=== PATIENT | female | born 1960 | race Caucasian/White ===

== ENCOUNTER 2018-11-20 22:34 | Inpatient (IN) | payer BC, SELFPAY ==
[2018-11-20 22:57] VITALS: BMI 35.9
[2018-11-20 23:09] VITALS: PULSE 84
[2018-11-20 23:22] VITALS: BP 158/87; PULSE 82; RESP 18; TEMP 36.9; O2SAT 98
[2018-11-20 23:24] VITALS: BMI 35.9
--- NOTE | 2018-11-20 23:33 | HP.PCM_ITS ---
Problem List (1) Hypercalcemia Status: Acute (2) Benign hypertension Status: Acute (3) Depression Status: Chronic (4) Fibromyalgia Status: Chronic (5) Insomnia Status: Chronic (6) Rheumatoid arthritis Status: Chronic History of Present Illness Date of Admission: 11/21/18 Chief Complaint: abnormal labs, high calcium The patient is a 58 year old patient with a history of rheumatoid arthritis who was discontinued her medications in October. 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 She was clearly not herself recently and the physician brought her in for laboratory studies. She was found to have a critically high calcium level of 13.9 and was sent to the [facility] emergency department. There she was treated with normal saline and they had plan to admit her there however there were no beds available and our facility was called to admit her. Currently she denies chest pain shortness of breath fevers or chills nausea vomiting or diarrhea. She does say her back pain has been getting much worse recently but in speaking with her it is clear that her history telling is somewhat incoherent and her speech pattern is somewhat tangential. She will be continued on observation status with IV normal saline at 200 cc/h and we will draw parathyroid hormone and repeat labs of calcium and BMP. Vital signs in the emergency room and [facility] were noted to be temperature of 36.9 ?C peripheral pulse rate of 68 bpm respiratory rate 18 breaths/min systolic blood pressure 149 diastolic blood pressure 85 SPO2 96%. Chest x-[facility] report in [facility] ED also shows perihilar interstitial opacities and central peribronchial thickening are again present similar in appearance to the prior study which may reflect chronic fibrotic changes. Superimposed atypical infectious or inflammatory process cannot be excluded no gross large lobar consolidation or effusion or pneumothorax is present. Free ionized calcium was 6.8 magnesium and phosphorus were within normal limits. Past Medical History Past Medical History (Chronic Problems): Chronic Problems Depression (Chronic) Fibromyalgia (Chronic) Insomnia (Chronic) Rheumatoid arthritis (Chronic) Allergies No Known Allergies Allergy (Verified 11/20/18 22:59) Home Medications: Ambulatory Orders Medication Instructions Recorded Bupropion HCl [Wellbutrin Sr] 200 mg PO BID 11/20/18 Cyanocobalamin (Vitamin B-12) 1,000 mcg PO DAILY 11/20/18 [Vitamin B-12] Ergocalciferol (Vitamin D2) 50,000 unit PO TH 11/20/18 [Vitamin D2] Lamotrigine [Lamictal] 100 mg PO BID 11/20/18 Levothyroxine [Synthroid] 50 mcg PO DAILY 11/20/18 Losartan/Hydrochlorothiazide 1 tab PO DAILY 11/20/18 [Losartan-Hctz 50-12.5 mg Tab] Multivitamin [Once Daily] 1 each PO DAILY 11/20/18 Prednisone 2.5 mg PO DAILY PRN PRN 11/20/18 Temazepam [Restoril] 30 mg PO QHS PRN 11/20/18 traZODone [Desyrel] 100 mg PO QHS 11/20/18 Smoking Status: Never smoker - *Family History Maternal History Items: No pertinent history Review of Systems Constitutional: Reports: Weakness. Denies: Chills, Fever, Weight Change HEENT: Denies: Head Aches, Sinus Congestion, Sinus Drainage Cardiovascular: Denies: Chest Pain, Palpitations Respiratory: Denies: Cough, Shortness of breath at rest, Sputum production Gastrointestinal: Denies: Abdominal Pain, Nausea, Vomiting Genitourinary: Denies: Dysuria Musculoskeletal: Denies: Joint Pain, Joint Tenderness Skin: Denies: Rash, Wounds Neurological: Reports: Change in Speech, Slurred speech. Denies: Focal weakness, Numbness, Tingling Psychiatric: Denies: Anxiety, Depression, Homicidal Ideations, Suicidal Ideations Hematologic/ Lymphatic: Denies: Easy Bruising, Easy Bleeding VTE Information - Inpt Only VTE Present on Admission: No VTE Mechan Device Prophylaxis: None VTE Pharm Prophylaxis ordered?: Yes Patient Problems: Active and Suspected Problems Hypercalcemia (Acute) Benign hypertension (Acute) - Physical Exam General: Alert, Oriented x3, Cooperative HEENT: Atraumatic, Normocephalic Neck: Supple Lungs: Clear to auscultation, Normal air movement Cardiovascular: Regular rate, Normal S1, Normal S2, No murmurs Abdomen: Bowel Sounds Present, Soft, Non Tender Extremities: No edema, Capillary Refill Less than 3 Seconds Skin: No rashes, No breakdown Musculoskeletal: No Tenderness to Palpation of Joints or Extremities Neurological: Cranial nerves II-XII grossly intact Psych/Mental Status: Appropriate Vital Signs Temp Pulse Resp BP Pulse Ox 98.5 F 82 18 158/87 H 98 11/20/18 23:22 11/20/18 23:22 11/20/18 23:22 11/20/18 23:22 11/20/18 23:22 Oxygen Delivery Method Room Air Weight: 222 lb 3.615 oz Body Mass Index (BMI) 35.9 Assessment/Plan All Active Problems Hypercalcemia (Acute) Benign hypertension (Acute) Chronic Problems Depression (Chronic) Fibromyalgia (Chronic) Insomnia (Chronic) Rheumatoid arthritis (Chronic) Plan 1. Hypercalcemia?start normal saline 200 cc/h repeat BMP and free ionized calcium upon arrival to our facility and also repeat BMP in a.m. Order parathyroid hormone level 2. Fibromyalgia continue current home therapy. 3. Insomnia continue current home therapy 4. Depression stable. 5. DVT prophylaxis start low molecular weight heparin Anticipate discharge home when calcium levels have normalized. If continued to be high may consider calcitonin treatment and/or bisphosphonate therapy. I would recommend that most of this could be done as an outpatient status as long as her calcium levels are lower. Code Visit OBSV E&M: 35232 Initial observation care L2
[2018-11-21] VITALS (9 sets, daily range): BP systolic 144–153; BP diastolic 74–90; PULSE 74–82; RESP 16–18; TEMP 36.7–37; O2SAT 95–100
[2018-11-21] MEDS: 0.9% Normal Saline 1,000 ML 200 ML IV ×5 (00:44→21:18)
[2018-11-21] MEDS: 0.9% NaCl Peripheral Flush Adult/Peds IV ×5 (01:04→13:00)
[2018-11-21] MEDS: traZODone 100 MG Tablet PO ×2 (01:09→21:25)
[2018-11-21] MEDS: Temazepam 15 MG Capsule 30 MG PO (01:09)
[2018-11-21 03:47] LABS: Anion Gap 8 (5-15); BUN 17 mg/dL (7-18); Calcium,Total 11.3 mg/dL (8.5-10.1); Chloride 108 mmol/L (98-107); EST Glomerular Filtration Rate 33 mL/min (>60); Est Glom Filt Rate - Afr Amer 39 mL/min (>60); Estimated Creatinine Clearance 32.94 ml/min; Glucose 88 mg/dL (74-106); Magnesium 1.7 mg/dL (1.6-2.6); Phosphorus 3.5 mg/dL (2.5-4.9); Potassium 3.2 mmol/L (3.5-5.1); Sodium Level 142 mmol/L (136-145)
[2018-11-21 04:02] LABS: PTHIN 6.8 pg/mL (18.4-80.1)
[2018-11-21] MEDS: Enoxaparin 40 MG/0.4 ML Syringe SC (05:41)
[2018-11-21] MEDS: Levothyroxine 50 MCG Tablet PO (05:41)
[2018-11-21] MEDS: Acetaminophen 325 MG Tablet 650 MG PO ×2 (05:49→16:28)
[2018-11-21] MEDS: Multivitamins,Therapeutic Tablet 1 TABLET PO (08:16)
[2018-11-21 08:17] LABS: Hematocrit 35.3 % (37-47); Hemoglobin 11.5 g/dl (12.0-15.0); Mean Corp Hgb Conc 32.6 g/gl (32-36); Mean Corpuscular Hgb 29.7 pg (27.0-32.0); Mean Corpuscular Volume 91.2 fL (81-99); Mean Platelet Vol. 7.9 fl (6.2-12.0); Platelet Count 188 K/mm3 (150-450); RBC Distribution Width CV 15.5 % (11.6-14.6); RBC Distribution Width SD 51.2 fl (35.1-43.9); Red Blood Count 3.87 M/mm3 (4.2-5.4); Scan Indicated on CBC? Y/N NO; White Blood Count 4.5 K/mm3 (4.4-11.0)
[2018-11-21 08:28] LABS: Albumin, Serum 2.9 g/dL (3.2-5.0)
[2018-11-21 08:30] LABS: ALB/GLOB Ratio 0.8 RATIO (0.9-2.4); Globulin 3.6 g/dL (2.2-4.2); Protein, Total 6.4 g/dL (6.4-8.2)
--- NOTE | 2018-11-21 09:07 | PCM.PN.HOSP ---
Patient Problems: Active and Suspected Problems Hypercalcemia (Acute) Benign hypertension (Acute) Subjective: Patient seen and examined. He was admitted to the ED on 11/21/2018 with a complaint of generalized malaise and was found to have elevated calcium of 13.9. This was at [facility] ED and she was transferred to [facility] on account of lack of beds. Patient has a history of rheumatoid arthritis and states that she recently discontinued her medications about a week ago at the instruction of her product analyst. She was not clear about why she was asked to stop taking her medications but just said her product analyst that she needed a break from her medications. She denies any history of elevated calcium and states she had her generalized pain but did not have any back pain. Back pain only started when she was admitted to the hospital where she attributed to the hospital bed. She denies any weight loss or chronic cough and has no history of smoking or history of lung cancer. Review of systems otherwise negative. Vitals/I&O's: Vital Signs Temp Pulse Resp BP Pulse Ox 98.1 F 80 18 144/88 H 95 11/21/18 08:19 11/21/18 08:20 11/21/18 08:19 11/21/18 08:19 11/21/18 08:19 Oxygen Delivery Method Room Air Weight: 222 lb 3.615 oz Body Mass Index (BMI) 35.9 Intake and Output for Last 24 Hours 11/19/18 11/20/18 11/21/18 23:59 23:59 23:59 Intake Total 1159 / 1159 Output Total 600 / 600 Balance 559 / 559 General: Alert, Oriented x3, Cooperative, No apparent distress HEENT: Atraumatic, PERRLA, EOMI, Normocephalic Oral: Moist Mucosa Neck: Supple, No JVD, Negative Carotid Bruits Lungs: Clear to auscultation, Normal air movement, No rhonchi, No wheeze, No rales Cardiovascular: Regular rate, Regular Rhythm, Normal S1, Normal S2, No murmurs Abdomen: Bowel Sounds Present, Soft, Non Tender, Non-Distended, No Hepato-splenomegaly Extremities: No clubbing, No cyanosis, No edema, Capillary Refill Less than 3 Seconds Skin: - - Scattered ecchymotic patches over her upper extremities. Musculoskeletal: No Tenderness to Palpation of Joints or Extremities Lymphatic: No Cervical, Supraclavicular, or Inguinal Adenopathy Neurological: Cranial nerves II-XII grossly intact, Neuro grossly intact, Motor Exam 5/5 strength throughout Psych/Mental Status: Normal Affect, Appropriate, Alert and oriented to time, place, person, mood and affect Laboratory Results 11/21/18 03:10: Sodium 142, Potassium 3.2 L, Chloride 108 H, Carbon Dioxide 26.0, Anion Gap 8, BUN 17, Creatinine 1.70 H, Estim Creat Clear Calc 32.94, Est GFR (MDRD) Af Amer 39 L, Est GFR (MDRD) Non-Af 33 L, BUN/Creatinine Ratio 10.0, Glucose 88, Calcium 11.3 H, Phosphorus 3.5, Magnesium 1.7 11/21/18 03:10: Ionized Calcium Pending 11/21/18 03:10: PTH Intact 6.8 L 11/21/18 08:10: Total Protein 6.4, Globulin 3.6, Albumin/Globulin Ratio 0.8 L 11/21/18 08:10: WBC 4.5, RBC 3.87 L, Hgb 11.5 L, Hct 35.3 L, MCV 91.2, MCH 29.7, MCHC 32.6, RDW 15.5 H, RDW Differential 51.2 H, Plt Count 188, MPV 7.9 11/21/18 08:10: Albumin 2.9 L Current Medications Acetaminophen (Tylenol) 650 mg PO Q6H PRN PRN PRN Reason: Mild Pain (1-3)/Temp > 100.7 F Last Admin: 11/21/18 05:49 Dose: 650 mg Bupropion HCl (Wellbutrin Sr (100mg Tablets)) 200 mg PO BID [facility] Cyanocobalamin (Vitamin B12) 1,000 mcg PO DAILY [facility] Enoxaparin Sodium (Lovenox) 40 mg SC DAILY@0600 [facility] Last Admin: 11/21/18 05:41 Dose: 40 mg Ergocalciferol (Vitamin D) 50,000 unit PO TH [facility] Sodium Chloride () 1,000 mls @ 200 mls/hr IV .Q5H [facility] Last Admin: 11/21/18 05:50 Dose: 200 mls/hr Lamotrigine (Lamictal) 100 mg PO BID [facility] Levothyroxine Sodium (Synthroid) 50 mcg PO DAILY@0600 [facility] Last Admin: 11/21/18 05:41 Dose: 50 mcg Multivitamins (Multivitamin) 1 tablet PO DAILYCM [facility] Last Admin: 11/21/18 08:16 Dose: 1 tablet Nystatin (Mycostatin Powder) 1 applic TOPICAL BID [facility]; Protocol Prednisone () 2.5 mg PO DAILY PRN PRN PRN Reason: arthritis Sodium Chloride () 5 - 15 ml IV UD PRN PRN Reason: SALINE FLUSH Last Admin: 11/21/18 01:09 Dose: 10 ml Temazepam (Restoril) 30 mg PO QHS PRN [facility] Last Admin: 11/21/18 01:09 Dose: 30 mg Trazodone HCl (Desyrel) 100 mg PO QHS [facility] Last Admin: 11/21/18 01:09 Dose: 100 mg Medical Necessity - Tobacco Use Smoking Status: Never smoker Assessment/Plan All Active Problems Hypercalcemia (Acute) Benign hypertension (Acute) 1. Hypercalcemia, possibly medication induced admitted with calcium of 13.8, as well as free ionized calcium of 6.8 from [place] being hydrated with IVF calcium today is 11.3, corrected for albumin of 2.9, calcium is 12.2 ionised calcium pending; PTH is suppressed at 6.8,. making hyperparathyroidism unlikely cause of hypercalcemia may be hypervitaminosis D, as patient is on ergocalciferol [id number] weekly. Per her ambulatory med list, she was also on HCTZ/lisinopril. HCTZ likely contributed to hypercalcemia hold ergocalciferol now; check TSH and 25-OH vit D and 1.25- OH vit D levels l if these are WNL, will get a CT chest to check for any occult malignancy continue hydrating with IVF NS and monitor calcium total protein not elevated. will check lipid profile 2. Hypokalemia: K is 3.2; will replace and monitor 3. KODI: Cr is 1.7, baseline Cr from October 2018 is ~ 0.9. continue hydrating. 4. Fibromyalgia: on prednisone and wellbutrin 5. Chronic insomnia: on trazodone 6. Depression: on trazodone and wellbutrin DVT prophylaxis: lovenox Code Visit OBSV E&M: 32633 Subsequent observation care L3
--- NOTE | 2018-11-21 09:12 | PN_ITS ---
Patient Problems: Active and Suspected Problems Hypercalcemia (Acute) Benign hypertension (Acute) Subjective: Patient seen and examined. He was admitted to the ED on 11/21/2018 with a complaint of generalized malaise and was found to have elevated calcium of 13.9. This was at [facility] ED and she was transferred to [facility] on account of lack of beds. Patient has a history of rheumatoid arthritis and states that she recently discontinued her medications about a week ago at the instruction of her licensing worker. She was not clear about why she was asked to stop taking her medications but just said her licensing worker that she needed a break from her medications. She denies any history of elevated calcium and states she had her generalized pain but did not have any back pain. Back pain only started when she was admitted to the hospital where she attributed to the hospital bed. She denies any weight loss or chronic cough and has no history of smoking or history of lung cancer. Review of systems otherwise negative. Vitals/I&O's: Vital Signs Temp Pulse Resp BP Pulse Ox 98.1 F 80 18 144/88 H 95 11/21/18 08:19 11/21/18 08:20 11/21/18 08:19 11/21/18 08:19 11/21/18 08:19 Oxygen Delivery Method Room Air Weight: 222 lb 3.615 oz Body Mass Index (BMI) 35.9 Intake and Output for Last 24 Hours 11/19/18 11/20/18 11/21/18 23:59 23:59 23:59 Intake Total 1159 / 1159 Output Total 600 / 600 Balance 559 / 559 General: Alert, Oriented x3, Cooperative, No apparent distress HEENT: Atraumatic, PERRLA, EOMI, Normocephalic Oral: Moist Mucosa Neck: Supple, No JVD, Negative Carotid Bruits Lungs: Clear to auscultation, Normal air movement, No rhonchi, No wheeze, No rales Cardiovascular: Regular rate, Regular Rhythm, Normal S1, Normal S2, No murmurs Abdomen: Bowel Sounds Present, Soft, Non Tender, Non-Distended, No Hepato- splenomegaly Extremities: No clubbing, No cyanosis, No edema, Capillary Refill Less than 3 Seconds Skin: - - Scattered ecchymotic patches over her upper extremities. Musculoskeletal: No Tenderness to Palpation of Joints or Extremities Lymphatic: No Cervical, Supraclavicular, or Inguinal Adenopathy Neurological: Cranial nerves II-XII grossly intact, Neuro grossly intact, Motor Exam 5/5 strength throughout Psych/Mental Status: Normal Affect, Appropriate, Alert and oriented to time, place, person, mood and affect Laboratory Results 11/21/18 03:10: Sodium 142, Potassium 3.2 L, Chloride 108 H, Carbon Dioxide 26.0, Anion Gap 8, BUN 17, Creatinine 1.70 H, Estim Creat Clear Calc 32.94, Est GFR (MDRD) Af Amer 39 L, Est GFR (MDRD) Non-Af 33 L, BUN/Creatinine Ratio 10.0, Glucose 88, Calcium 11.3 H, Phosphorus 3.5, Magnesium 1.7 11/21/18 03:10: Ionized Calcium Pending 11/21/18 03:10: PTH Intact 6.8 L 11/21/18 08:10: Total Protein 6.4, Globulin 3.6, Albumin/Globulin Ratio 0.8 L 11/21/18 08:10: WBC 4.5, RBC 3.87 L, Hgb 11.5 L, Hct 35.3 L, MCV 91.2, MCH 29.7, MCHC 32.6, RDW 15.5 H, RDW Differential 51.2 H, Plt Count 188, MPV 7.9 11/21/18 08:10: Albumin 2.9 L Current Medications Acetaminophen (Tylenol) 650 mg PO Q6H PRN PRN PRN Reason: Mild Pain (1-3)/Temp > 100.7 F Last Admin: 11/21/18 05:49 Dose: 650 mg Bupropion HCl (Wellbutrin Sr (100mg Tablets)) 200 mg PO BID [facility] Cyanocobalamin (Vitamin B12) 1,000 mcg PO DAILY [facility] Enoxaparin Sodium (Lovenox) 40 mg SC DAILY@0600 [facility] Last Admin: 11/21/18 05:41 Dose: 40 mg Ergocalciferol (Vitamin D) 50,000 unit PO TH [facility] Sodium Chloride () 1,000 mls @ 200 mls/hr IV .Q5H [facility] Last Admin: 11/21/18 05:50 Dose: 200 mls/hr Lamotrigine (Lamictal) 100 mg PO BID [facility] Levothyroxine Sodium (Synthroid) 50 mcg PO DAILY@0600 [facility] Last Admin: 11/21/18 05:41 Dose: 50 mcg Multivitamins (Multivitamin) 1 tablet PO DAILYCM [facility] Last Admin: 11/21/18 08:16 Dose: 1 tablet Nystatin (Mycostatin Powder) 1 applic TOPICAL BID [facility]; Protocol Prednisone () 2.5 mg PO DAILY PRN PRN PRN Reason: arthritis Sodium Chloride () 5 - 15 ml IV UD PRN PRN Reason: SALINE FLUSH Last Admin: 11/21/18 01:09 Dose: 10 ml Temazepam (Restoril) 30 mg PO QHS PRN [facility] Last Admin: 11/21/18 01:09 Dose: 30 mg Trazodone HCl (Desyrel) 100 mg PO QHS [facility] Last Admin: 11/21/18 01:09 Dose: 100 mg Medical Necessity - Tobacco Use Smoking Status: Never smoker Assessment/Plan All Active Problems Hypercalcemia (Acute) Benign hypertension (Acute) 1. Hypercalcemia, possibly medication induced * admitted with calcium of 13.8, as well as free ionized calcium of 6.8 from [place] * being hydrated with IVF * calcium today is 11.3, corrected for albumin of 2.9, calcium is 12.2 * ionised calcium pending; PTH is suppressed at 6.8,. making hyperparathyroidism unlikely * cause of hypercalcemia may be hypervitaminosis D, as patient is on ergocalciferol [id number] weekly. Per her ambulatory med list, she was also on HCTZ/lisinopril. HCTZ likely contributed to hypercalcemia * hold ergocalciferol now; check TSH and 25-OH vit D and 1.25- OH vit D levels l if these are WNL, will get a CT chest to check for any occult malignancy * continue hydrating with IVF NS and monitor calcium * total protein not elevated. * will check lipid profile 2. Hypokalemia: K is 3.2; will replace and monitor 3. KODI: Cr is 1.7, baseline Cr from October 2018 is ~ 0.9. continue hydrating. 4. Fibromyalgia: on prednisone and wellbutrin 5. Chronic insomnia: on trazodone 6. Depression: on trazodone and wellbutrin DVT prophylaxis: lovenox Code Visit OBSV E&M: 33260 Subsequent observation care L3
[2018-11-21] MEDS: Cyanocobalamin 500 MCG Tablet 1000 MCG PO (09:46)
[2018-11-21] MEDS: Nystatin Powder 15gm Bottle 1 APPLIC TOPICAL ×2 (09:46→21:14)
[2018-11-21] MEDS: lamoTRIgine 100 MG Tablet PO ×2 (09:46→21:15)
[2018-11-21] MEDS: buPROPion (SR) 100 MG TABLET.SA 200 MG PO ×2 (09:46→21:15)
[2018-11-21 09:48] LABS: Thyroid Stim Hormone (TSH) 1.99 uIU/mL (0.358-3.74)
[2018-11-21 10:51] LABS: Vitamin D,25 Hydroxy 71.2 ng/mL (29.95-100.01)
--- NOTE | 2018-11-21 12:21 | CT_ITS ---
STUDY: CT CHEST WITHOUT CONTRAST REASON FOR EXAM: Female, 58 years old. Hypercalcemia. Fibromyalgia. History of rheumatoid arthritis. RADIATION DOSAGE (If Supplied By Facility): CTDIvol = ( 19.15 ) mGy, DLP = ( 612.45 ) mGycm TECHNIQUE: Transaxial imaging was performed without the administration of intravenous contrast material. Multiplanar coronal and sagittal images were reformatted. Individualized dose optimization techniques were used for this CT. COMPARISON: None. FINDINGS: Diffuse increased interstitial markings in both lungs with a fibronodular pattern. There is also evidence of a focal areas of confluence in the anterior aspect of the right middle lobe as well as in both lower lobes. There is also evidence of honeycombing at the lung bases. Findings are suggestive for chronic interstitial fibrosis. There is no demonstrated pleural abnormality. There are calcifications of the coronary arteries. Normal mediastinum. Normal hilar regions. Normal unenhanced pulmonary arteries. Normal aorta arch and descending thoracic aorta. There are multi-level degenerative changes of the thoracic spine. Calcified splenic granulomas. CT/Chest without Contrast IMPRESSION: Findings suggestive of chronic interstitial fibrosis involving both lungs worse in the lower lobes. Electronically Signed: Filiberto Cook, at 13:43 EDT , Service support ,
--- NOTE | 2018-11-21 12:26 | CASEMGMT ---
RN CM Assessment Presentation: Hypercalcemia, Calcium 13.9 @ [facility] ER. Speech changes. Intro role of CM and purpose of RN CM assessment to patient in room. She is awake, alert and able to participate in assessment. Demographics, PCP and Pharmacy verified. Pt states until recently she has been very independent, no difficulties. -CT planned for today. PCP: Dr. Jany Morales Specialists: Rheumatology Preferred [facility]acy: [facility] Insurance: [employer] Prescription Benefit: yes LNOK: not listed, pt has friend Gera Anne as person to notify. Living Arrangements: lives independently in one story home. Has laundry in basement. Pt states she generally is independent, does own care and home care. Pt states her anglican family is able to assist with bringing food, home care and laundry on dc if needed. Transportation: pt drives, but if unable, has friends who can drive her. DME: cane, does not use. HHC: none Patient DC goals: Home DC PLAN: Home. Ke HASKINS RN ACM
--- NOTE | 2018-11-21 12:43 | CHAPLAIN ---
Type of Pastoral Visit _x__ Initial Visit ___ Follow-up Visit ___ On-call Visit ___ General Patient Visit ___ Spiritual Assessment ___ Family Conference ___ Bereavement ___ Rapid Response ___ Code Blue ___ Other (describe below) Pastoral Care Referral From _x__ Patient ___ Family ___ Nurse ___ Physician ___ Linux Security Administrator ___ Campus Wellness Coordinator ___ Other (describe below) Sacrament/Intervention _x__ Active listening ___ Anointing ___ Voodoo ___ Bereavement ___ Communion _x__ Allison exploration ___ _x__ Life review _x__ Prayer ___ Reconciliation ___ Sacrament of Sick _x__ Supportive presence ___ Wedding ___ Other (describe below) Pastoral Comments patient seeks out spiritual support and care; pt is facing decisions about her future
[2018-11-21 12:49] LABS: Mucous, Urine 0 SEEN /hpf (<or=2+)
[2018-11-21 12:56] LABS: Color, Urine Yellow (Yellow); Glucose, Dipstick Normal (Normal); Ketone-Dipstick Negative (Negative); Leukocyte Esterase-Dipstick 25 /ul (Negative); Nitrite-Dipstick Negative (Negative); Occult Blood-Urine 250 /ul (Negative); Protein-Dipstick Negative (Negative); Specific Gravity, Urine 1.015 (1.002-1.030); Urine Bilirubin Dipstick Negative (Negative); Urine Clarity Sl. Cloudy (Clear); Urine Urobilinogen Normal (Normal); Urine pH 6.5 (5.0 - 8.0)
[2018-11-21 13:03] LABS: Red Blood Cells-Urine 5-10 SEEN /hpf (0-5); Squamous Epithelial Cells - UA 0-5 SEEN /hpf (5-10); White Blood Cells 0-5 SEEN /hpf (0-5)
[2018-11-21 13:04] LABS: Bacteria RARE /hpf (None Seen)
[2018-11-21 13:06] LABS: AST(SGOT) 31 U/L (15-37); Alanine Aminotransfer ALT/SGPT 26 U/L (13-56); Albumin, Serum 2.9 g/dL (3.2-5.0); Alkaline Phosphatase 65 U/L (45-117); Bilirubin, Direct 0.13 mg/dL (0.00-0.30); Globulin 3.7 g/dL (2.2-4.2); Protein, Total 6.6 g/dL (6.4-8.2)
[2018-11-22 01:57] VITALS: BP 165/90; PULSE 80; RESP 18; TEMP 36.5; O2SAT 98
[2018-11-22] MEDS: 0.9% Normal Saline 1,000 ML 200 ML IV ×2 (02:06→07:35)
[2018-11-22] MEDS: Enoxaparin 30 MG/0.3 ML Syringe SC (05:15)
[2018-11-22] MEDS: Levothyroxine 50 MCG Tablet PO (05:15)
[2018-11-22 07:05] LABS: Absolute Lymphocyte Count 0.74 X10^3/ul (0.83-4.51); Absolute Neutrophil Count 3.4 X10^3/uL (2.0-7.7); Basophil# 0.04 X10^3/uL; Basophil% 0.8 % (0-1); Eosinophil# 0.07 X10^3/uL; Eosinophils% 1.4 % (0-5); Hematocrit 34.8 % (37-47); Hemoglobin 11.2 g/dl (12.0-15.0); Lymphocyte # 0.74 X10^3/ul (4.0); Mean Corp Hgb Conc 32.2 g/gl (32-36); Mean Corpuscular Hgb 29.6 pg (27.0-32.0); Mean Corpuscular Volume 92.1 fL (81-99); Mean Platelet Vol. 8.5 fl (6.2-12.0); Monocyte% 14.2 % (0-10); Neutrophil # 3.36 X10^3/uL (2.7-7.7); Neutrophil % 68.4 % (47-70); Platelet Count 214 K/mm3 (150-450); RBC Distribution Width CV 15.4 % (11.6-14.6); RBC Distribution Width SD 49.6 fl (35.1-43.9); Red Blood Count 3.78 M/mm3 (4.2-5.4); White Blood Count 4.9 K/mm3 (4.4-11.0)
[2018-11-22 07:07] LABS: POSITIVE COUNT NO; POSITIVE DIFFERENTIAL NO; POSITIVE MORPHOLOGY NO
[2018-11-22 07:30] LABS: ALB/GLOB Ratio 0.7 RATIO (0.9-2.4); AST(SGOT) 30 U/L (15-37); Alanine Aminotransfer ALT/SGPT 28 U/L (13-56); Albumin, Serum 2.7 g/dL (3.2-5.0); Alkaline Phosphatase 66 U/L (45-117); Anion Gap 7 (5-15); BUN 13 mg/dL (7-18); BUN/Creat Ratio 9.1 RATIO (10-20); Calcium,Total 10.7 mg/dL (8.5-10.1); Chloride 112 mmol/L (98-107); Creatinine, Serum 1.43 mg/dL (0.55-1.02); EST Glomerular Filtration Rate 40 mL/min (>60); Est Glom Filt Rate - Afr Amer 48 mL/min (>60); Estimated Creatinine Clearance 39.16 ml/min; Globulin 3.8 g/dL (2.2-4.2); Glucose 83 mg/dL (74-106); Potassium 3.7 mmol/L (3.5-5.1); Protein, Total 6.5 g/dL (6.4-8.2); Sodium Level 143 mmol/L (136-145)
[2018-11-22 10:02] VITALS: BP 145/81; PULSE 77; RESP 18; TEMP 36.7; O2SAT 99
[2018-11-22] MEDS: lamoTRIgine 100 MG Tablet PO ×2 (10:08→22:21)
[2018-11-22] MEDS: Cyanocobalamin 500 MCG Tablet 1000 MCG PO (10:08)
[2018-11-22] MEDS: buPROPion (SR) 100 MG TABLET.SA 200 MG PO ×2 (10:08→22:22)
[2018-11-22] MEDS: Nystatin Powder 15gm Bottle 1 APPLIC TOPICAL ×2 (10:09→22:21)
[2018-11-22 10:21] VITALS: BP 156/90; BP 157/88; BP 158/91; PULSE 81; PULSE 83
--- NOTE | 2018-11-22 11:19 | PCM.PN.HOSP ---
Patient Problems: Active and Suspected Problems Hypercalcemia (Acute) Benign hypertension (Acute) Subjective: Patient seen and examined. She is much more alert today and has no complaints. Review of systems otherwise negative. Labs and vitals reviewed. Vitals/I&O's: Vital Signs Temp Pulse Resp BP Pulse Ox 98.0 F 81 18 158/91 H 99 11/22/18 10:02 11/22/18 10:21 11/22/18 10:02 11/22/18 10:21 11/22/18 10:02 Oxygen Delivery Method Room Air Weight: 222 lb 3.615 oz Body Mass Index (BMI) 35.9 Orthostatic Vital Signs Start: 11/22/18 10:21 Freq: q24h Status: Active Protocol: Activity Type Activity Date Activity User E-Sign Co-Sign Detail Recorded Client Recorded Date Recorded By Document 11/22/18 10:21 ANNAMARIE [id number] 11/22/18 10:24 ANNAMARIE 11/22/18 10:21 Orthostatic Vitals Standing -Blood Pressure (90/60-120/80 mm Hg) 157/88 H -Extremity Use Left Arm -Pulse Rate (60-100 beats/min) 83 Sitting -Blood Pressure (90/60-120/80 mm Hg) 156/90 H -Extremity Use Left Arm -Pulse Rate (60-100 beats/min) 81 Lying -Blood Pressure (90/60-120/80 mm Hg) 158/91 H -Extremity Use Left Arm -Pulse Rate (60-100 beats/min) 81 Intake and Output for Last 24 Hours 11/20/18 11/21/18 11/22/18 23:59 23:59 23:59 Intake Total 4353 / 4353 2840 / 2840 Output Total 2300 / 2300 2049 / 2049 Balance 2052 790 / 790 General: Alert, Oriented x3, Cooperative, No apparent distress HEENT: Atraumatic, PERRLA, EOMI, Normocephalic Oral: Moist Mucosa Neck: Supple, No JVD, Negative Carotid Bruits Lungs: Clear to auscultation, Normal air movement, No rhonchi, No wheeze, No rales Cardiovascular: Regular rate, Regular Rhythm, Normal S1, Normal S2, No murmurs Abdomen: Bowel Sounds Present, Soft, Non Tender, Non-Distended, No Hepato-splenomegaly Extremities: No clubbing, No cyanosis, No edema, Capillary Refill Less than 3 Seconds Skin: - - Scattered ecchymotic patches over her upper extremities-resolving Musculoskeletal: No Tenderness to Palpation of Joints or Extremities Lymphatic: No Cervical, Supraclavicular, or Inguinal Adenopathy Neurological: Cranial nerves II-XII grossly intact, Neuro grossly intact, Motor Exam 5/5 strength throughout Psych/Mental Status: Normal Affect, Appropriate, Alert and oriented to time, place, person, mood and affect Laboratory Results 11/21/18 08:10: Total Bilirubin 0.50, Direct Bilirubin 0.13, AST 31, ALT 26, Alkaline Phosphatase 65, Total Protein 6.6, Albumin 2.9 L, Globulin 3.7 11/21/18 12:40: Urine Color Yellow, Urine Clarity Sl. Cloudy, Urine pH 6.5, Ur Specific [place] 1.015, Urine Protein Negative, Urine Glucose (UA) Normal, Urine Ketones Negative, Urine Occult Blood 250 H, Urine Nitrite Negative, Urine Bilirubin Negative, Urine Urobilinogen Normal, Ur Leukocyte Esterase 25 H, Urine RBC 5-10 SEEN, Urine WBC 0-5 SEEN, Ur Squamous Epith Cells 0-5 SEEN, Urine Bacteria RARE, Urine Mucus 0 SEEN 11/22/18 06:34: WBC 4.9, RBC 3.78 L, Hgb 11.2 L, Hct 34.8 L, MCV 92.1, MCH 29.6, MCHC 32.2, RDW 15.4 H, RDW Differential 49.6 H, Plt Count 214, MPV 8.5, Immature Gran % (Auto) 0.200, Neut % (Auto) 68.4, Lymph % (Auto) 15.0 L, [place] % (Auto) 14.2 H, Eos % (Auto) 1.4, Baso % (Auto) 0.8, Absolute Neuts (auto) 3.4, Absolute Lymphs (auto) 0.74 L, Total Counted Not Reportable 11/22/18 06:34: Sodium 143, Potassium 3.7, Chloride 112 H, Carbon Dioxide 24.0, Anion Gap 7, BUN 13, Creatinine 1.43 H, Estim Creat Clear Calc 39.16, Est GFR (MDRD) Af Amer 48 L, Est GFR (MDRD) Non-Af 40 L, BUN/Creatinine Ratio 9.1 L, Glucose 83, Calcium 10.7 H, Total Bilirubin 0.40, AST 30, ALT 28, Alkaline Phosphatase 66, Total Protein 6.5, Albumin 2.7 L, Globulin 3.8, Albumin/Globulin Ratio 0.7 L Diagnostic Data Chest CT 11/21/18 12:21 IMPRESSION: Findings suggestive of chronic interstitial fibrosis involving both lungs worse in the lower lobes. Electronically Signed: Filiberto Cook, at 13:43 EDT , Service support , Current Medications Acetaminophen (Tylenol) 650 mg PO Q6H PRN PRN PRN Reason: Mild Pain (1-3)/Temp > 100.7 F Last Admin: 11/21/18 16:28 Dose: 650 mg Bupropion HCl (Wellbutrin Sr (100mg Tablets)) 200 mg PO BID [facility] Last Admin: 11/22/18 10:08 Dose: 200 mg Cyanocobalamin (Vitamin B12) 1,000 mcg PO DAILY [facility] Last Admin: 11/22/18 10:08 Dose: 1,000 mcg Enoxaparin Sodium (Lovenox) 30 mg SC DAILY@0600 [facility] Last Admin: 11/22/18 05:15 Dose: 30 mg Ergocalciferol (Vitamin D) 50,000 unit PO TH [facility] Lamotrigine (Lamictal) 100 mg PO BID [facility] Last Admin: 11/22/18 10:08 Dose: 100 mg Levothyroxine Sodium (Synthroid) 50 mcg PO DAILY@0600 [facility] Last Admin: 11/22/18 05:15 Dose: 50 mcg Nystatin (Mycostatin Powder) 1 applic TOPICAL BID [facility]; Protocol Last Admin: 11/22/18 10:09 Dose: 1 applicatio Prednisone () 2.5 mg PO DAILY PRN PRN PRN Reason: arthritis Sodium Chloride () 5 - 15 ml IV UD PRN PRN Reason: SALINE FLUSH Last Admin: 11/21/18 13:00 Dose: 10 ml Temazepam (Restoril) 30 mg PO QHS PRN [facility] Last Admin: 11/21/18 01:09 Dose: 30 mg Trazodone HCl (Desyrel) 100 mg PO QHS [facility] Last Admin: 11/21/18 21:25 Dose: 100 mg Medical Necessity - Tobacco Use Smoking Status: Never smoker Assessment/Plan All Active Problems Hypercalcemia (Acute) Benign hypertension (Acute) 1. Hypercalcemia, probably medication induced admitted with calcium of 13.8, as well as free ionized calcium of 6.8 from [place] being hydrated with IVF calcium is down to 10.7 today; corrected for albumin, is 11.7 ionised calcium still pending CT chest yesterday showed chronic bilateral interstitial fibrosis, worse in the lower lobes HCTZ and oral vitamin D on hold; I strongly suspect these caused hypecalcemia 1,25 [place] vitamin D elvel pending continue hydration with IVF will give one dose of IV lasix 40mg once to help with calcium renal excretion 2. Hypokalemia: resolved. K today is 3.7. 3. KODI: Cr is down to 1.43 from 1.7. continue hydrating with IVF. 4. Fibromyalgia: on prednisone and wellbutrin 5. Chronic insomnia: on trazodone 6. Depression: on trazodone and wellbutrin DVT prophylaxis: lovenox Code Visit Inpatient E&M: 70812 Subs Hosp L3
--- NOTE | 2018-11-22 11:26 | PN_ITS ---
Patient Problems: Active and Suspected Problems Hypercalcemia (Acute) Benign hypertension (Acute) Subjective: Patient seen and examined. She is much more alert today and has no complaints. Review of systems otherwise negative. Labs and vitals reviewed. Vitals/I&O's: Vital Signs Temp Pulse Resp BP Pulse Ox 98.0 F 81 18 158/91 H 99 11/22/18 10:02 11/22/18 10:21 11/22/18 10:02 11/22/18 10:21 11/22/18 10:02 Oxygen Delivery Method Room Air Weight: 222 lb 3.615 oz Body Mass Index (BMI) 35.9 Orthostatic Vital Signs Start: 11/22/18 10:21 Freq: q24h Status: Active Protocol: Activity Type Activity Date Activity User E-Sign Co-Sign Detail Recorded Client Recorded Date Recorded By Document 11/22/18 10:21 ANNAMARIE [id number] 11/22/18 10:24 ANNAMARIE 11/22/18 10:21 Orthostatic Vitals Standing -Blood Pressure (90/60-120/80 mm Hg) 157/88 H -Extremity Use Left Arm -Pulse Rate (60-100 beats/min) 83 Sitting -Blood Pressure (90/60-120/80 mm Hg) 156/90 H -Extremity Use Left Arm -Pulse Rate (60-100 beats/min) 81 Lying -Blood Pressure (90/60-120/80 mm Hg) 158/91 H -Extremity Use Left Arm -Pulse Rate (60-100 beats/min) 81 Intake and Output for Last 24 Hours 11/20/18 11/21/18 11/22/18 23:59 23:59 23:59 Intake Total 4353 / 4353 2840 / 2840 Output Total 2300 / 2300 2049 / 2049 Balance 2052 790 / 790 General: Alert, Oriented x3, Cooperative, No apparent distress HEENT: Atraumatic, PERRLA, EOMI, Normocephalic Oral: Moist Mucosa Neck: Supple, No JVD, Negative Carotid Bruits Lungs: Clear to auscultation, Normal air movement, No rhonchi, No wheeze, No rales Cardiovascular: Regular rate, Regular Rhythm, Normal S1, Normal S2, No murmurs Abdomen: Bowel Sounds Present, Soft, Non Tender, Non-Distended, No Hepato- splenomegaly Extremities: No clubbing, No cyanosis, No edema, Capillary Refill Less than 3 Seconds Skin: - - Scattered ecchymotic patches over her upper extremities-resolving Musculoskeletal: No Tenderness to Palpation of Joints or Extremities Lymphatic: No Cervical, Supraclavicular, or Inguinal Adenopathy Neurological: Cranial nerves II-XII grossly intact, Neuro grossly intact, Motor Exam 5/5 strength throughout Psych/Mental Status: Normal Affect, Appropriate, Alert and oriented to time, place, person, mood and affect Laboratory Results 11/21/18 08:10: Total Bilirubin 0.50, Direct Bilirubin 0.13, AST 31, ALT 26, Alkaline Phosphatase 65, Total Protein 6.6, Albumin 2.9 L, Globulin 3.7 11/21/18 12:40: Urine Color Yellow, Urine Clarity Sl. Cloudy, Urine pH 6.5, Ur Specific [place] 1.015, Urine Protein Negative, Urine Glucose (UA) Normal, Urine Ketones Negative, Urine Occult Blood 250 H, Urine Nitrite Negative, Urine Bilirubin Negative, Urine Urobilinogen Normal, Ur Leukocyte Esterase 25 H, Urine RBC 5-10 SEEN, Urine WBC 0-5 SEEN, Ur Squamous Epith Cells 0-5 SEEN, Urine Ba cteria RARE, Urine Mucus 0 SEEN 11/22/18 06:34: WBC 4.9, RBC 3.78 L, Hgb 11.2 L, Hct 34.8 L, MCV 92.1, MCH 29.6, MCHC 32.2, RDW 15.4 H, RDW Differential 49.6 H, Plt Count 214, MPV 8.5, Immature Gran % (Auto) 0.200, Neut % (Auto) 68.4, Lymph % (Auto) 15.0 L, [place] % (Auto) 14.2 H, Eos % (Auto) 1.4, Baso % (Auto) 0.8, Absolute Neuts (auto) 3.4, Absolute Lymphs (auto) 0.74 L, Total Counted Not Reportable 11/22/18 06:34: Sodium 143, Potassium 3.7, Chloride 112 H, Carbon Dioxide 24.0, Anion Gap 7, BUN 13, Creatinine 1.43 H, Estim Creat Clear Calc 39.16, Est GFR (MDRD) Af Amer 48 L, Est GFR (MDRD) Non-Af 40 L, BUN/Creatinine Ratio 9.1 L, Glucose 83, Calcium 10.7 H, Total Bilirubin 0.40, AST 30, ALT 28, Alkaline Phosphatase 66, Total Protein 6.5, Albumin 2.7 L, Globulin 3.8, Albumin/Globulin Ratio 0.7 L Diagnostic Data Chest CT 11/21/18 12:21 IMPRESSION: Findings suggestive of chronic interstitial fibrosis involving both lungs worse in the lower lobes. Electronically Signed: Filiberto Cook, at 13:43 EDT , Service support , Current Medications Acetaminophen (Tylenol) 650 mg PO Q6H PRN PRN PRN Reason: Mild Pain (1-3)/Temp > 100.7 F Last Admin: 11/21/18 16:28 Dose: 650 mg Bupropion HCl (Wellbutrin Sr (100mg Tablets)) 200 mg PO BID [facility] Last Admin: 11/22/18 10:08 Dose: 200 mg Cyanocobalamin (Vitamin B12) 1,000 mcg PO DAILY [facility] Last Admin: 11/22/18 10:08 Dose: 1,000 mcg Enoxaparin Sodium (Lovenox) 30 mg SC DAILY@0600 [facility] Last Admin: 11/22/18 05:15 Dose: 30 mg Ergocalciferol (Vitamin D) 50,000 unit PO TH [facility] Lamotrigine (Lamictal) 100 mg PO BID [facility] Last Admin: 11/22/18 10:08 Dose: 100 mg Levothyroxine Sodium (Synthroid) 50 mcg PO DAILY@0600 [facility] Last Admin: 11/22/18 05:15 Dose: 50 mcg Nystatin (Mycostatin Powder) 1 applic TOPICAL BID [facility]; Protocol Last Admin: 11/22/18 10:09 Dose: 1 applicatio Prednisone () 2.5 mg PO DAILY PRN PRN PRN Reason: arthritis Sodium Chloride () 5 - 15 ml IV UD PRN PRN Reason: SALINE FLUSH Last Admin: 11/21/18 13:00 Dose: 10 ml Temazepam (Restoril) 30 mg PO QHS PRN [facility] Last Admin: 11/21/18 01:09 Dose: 30 mg Trazodone HCl (Desyrel) 100 mg PO QHS [facility] Last Admin: 11/21/18 21:25 Dose: 100 mg Medical Necessity - Tobacco Use Smoking Status: Never smoker Assessment/Plan All Active Problems Hypercalcemia (Acute) Benign hypertension (Acute) 1. Hypercalcemia, probably medication induced * admitted with calcium of 13.8, as well as free ionized calcium of 6.8 from [place] * being hydrated with IVF * calcium is down to 10.7 today; corrected for albumin, is 11.7 * ionised calcium still pending * CT chest yesterday showed chronic bilateral interstitial fibrosis, worse in the lower lobes * HCTZ and oral vitamin D on hold; I strongly suspect these caused hypecalcemia * 1,25 [place] vitamin D elvel pending * continue hydration with IVF * will give one dose of IV lasix 40mg once to help with calcium renal excretion * 2. Hypokalemia: resolved. K today is 3.7. 3. KODI: Cr is down to 1.43 from 1.7. continue hydrating with IVF. 4. Fibromyalgia: on prednisone and wellbutrin 5. Chronic insomnia: on trazodone 6. Depression: on trazodone and wellbutrin DVT prophylaxis: lovenox Code Visit Inpatient E&M: 43367 Subs Hosp L3
[2018-11-22] MEDS: 0.9% Normal Saline 1,000 ML 100 ML IV ×2 (11:56→22:21)
[2018-11-22] MEDS: Furosemide 40 MG/4 ML Vial IV (11:56)
[2018-11-22] MEDS: 0.9% NaCl Peripheral Flush Adult/Peds IV (11:56)
[2018-11-22 15:16] VITALS: BP 146/95; PULSE 73; RESP 18; TEMP 36.8; O2SAT 97
[2018-11-22 20:43] VITALS: BP 145/75; PULSE 76; RESP 18; TEMP 36.9; O2SAT 98
[2018-11-22] MEDS: traZODone 100 MG Tablet PO (22:21)
[2018-11-22] MEDS: Temazepam 15 MG Capsule 30 MG PO (22:22)
[2018-11-23 02:50] VITALS: BP 140/92; PULSE 83; RESP 16; TEMP 36.5; O2SAT 94
[2018-11-23] MEDS: Enoxaparin 30 MG/0.3 ML Syringe SC (05:55)
[2018-11-23] MEDS: Levothyroxine 50 MCG Tablet PO (05:55)
[2018-11-23 06:15] LABS: Absolute Lymphocyte Count 0.83 X10^3/ul (0.83-4.51); Absolute Neutrophil Count 2.2 X10^3/uL (2.0-7.7); Basophil# 0.05 X10^3/uL; Basophil% 1.2 % (0-1); Eosinophil# 0.13 X10^3/uL; Eosinophils% 3.1 % (0-5); Hematocrit 35.7 % (37-47); Hemoglobin 11.6 g/dl (12.0-15.0); Lymphocyte # 0.83 X10^3/ul (4.0); Lymphocyte % 19.6 % (19-41); Mean Corp Hgb Conc 32.5 g/gl (32-36); Mean Corpuscular Hgb 29.7 pg (27.0-32.0); Mean Corpuscular Volume 91.5 fL (81-99); Mean Platelet Vol. 8.4 fl (6.2-12.0); Monocyte# 1.04 X10^3/uL; Monocyte% 24.5 % (0-10); Neutrophil # 2.17 X10^3/uL (2.7-7.7); Neutrophil % 51.1 % (47-70); Platelet Count 218 K/mm3 (150-450); RBC Distribution Width CV 15.3 % (11.6-14.6); RBC Distribution Width SD 50.2 fl (35.1-43.9); White Blood Count 4.2 K/mm3 (4.4-11.0)
[2018-11-23 06:27] LABS: POSITIVE COUNT NO; POSITIVE DIFFERENTIAL NO; POSITIVE MORPHOLOGY NO
[2018-11-23 06:38] LABS: ALB/GLOB Ratio 0.7 RATIO (0.9-2.4); AST(SGOT) 34 U/L (15-37); Alanine Aminotransfer ALT/SGPT 30 U/L (13-56); Albumin, Serum 2.7 g/dL (3.2-5.0); Alkaline Phosphatase 65 U/L (45-117); Anion Gap 7 (5-15); BUN 12 mg/dL (7-18); BUN/Creat Ratio 8.9 RATIO (10-20); Calcium,Total 10.7 mg/dL (8.5-10.1); Chloride 110 mmol/L (98-107); Creatinine, Serum 1.35 mg/dL (0.55-1.02); EST Glomerular Filtration Rate 43 mL/min (>60); Est Glom Filt Rate - Afr Amer 51 mL/min (>60); Estimated Creatinine Clearance 41.49 ml/min; Globulin 3.8 g/dL (2.2-4.2); Glucose 77 mg/dL (74-106); Potassium 3.1 mmol/L (3.5-5.1); Protein, Total 6.5 g/dL (6.4-8.2); Sodium Level 141 mmol/L (136-145)
[2018-11-23] MEDS: 0.9% Normal Saline 1,000 ML 125 ML IV (08:17)
[2018-11-23] MEDS: lamoTRIgine 100 MG Tablet PO (08:25)
[2018-11-23] MEDS: Cyanocobalamin 500 MCG Tablet 1000 MCG PO (08:25)
[2018-11-23] MEDS: buPROPion (SR) 100 MG TABLET.SA 200 MG PO (08:25)
[2018-11-23 09:35] VITALS: BP 141/69; PULSE 79; RESP 18; TEMP 36.7; O2SAT 95
[2018-11-23] MEDS: 0.9% NaCl Peripheral Flush Adult/Peds IV (09:37)
[2018-11-23] MEDS: Furosemide 40 MG/4 ML Vial IV (09:37)
--- NOTE | 2018-11-23 11:04 | PCM.CONS.PUL ---
Reason for Consult Date of Consultation: 11/23/18 Reason for Consultation: Interstitial lung disease History of Present Illness: The patient is a 58-year-old female, with a history as outlined below, who presented as a direct admission from [facility] due to hypercalcemia. 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 She became concerned over the fact that the patient had developed confusion and slurred speech. She did a preliminary work-up and upon discovery of the patient's hypercalcemia, encouraged the patient to present to the emergency department for evaluation. On presentation here, the patient was noted to be afebrile and hemodynamically stable. She was maintaining appropriate oxygen saturations on room air. Laboratory evaluation revealed no evidence of a leukocytosis. The patient did have normocytic anemia. Chemistry profile was notable for a potassium of 3.2 along with acute kidney injury with a creatinine of 1.70. Calcium was elevated to 11.3, with albumin being low at 2.9. The patient was admitted to the medical surgical floor for ongoing management. Her hospital course has included IV fluid hydration with normal saline. It was strongly suspected that her hypercalcemia was the consequence of hydrochlorothiazide and oral vitamin D intake. A CT chest without contrast was obtained, which revealed diffuse interstitial fibrotic changes, most pronounced the lung bases with a mild degree of subpleural honeycombing. Despite this, the patient has been able to maintain appropriate oxygen saturations on room air throughout her hospital stay. The patient has a long-standing history of rheumatoid arthritis and is currently followed by a tinsel machine operator at the arthritis Center in [facility] (Dr Christiano Mcclellan). She is not currently on any form of treatment, with the exception of as needed prednisone. She was previously treated with Remicade. The patient is a lifelong non-smoker. Her tinsel machine operator recently placed orders for the patient to have an echocardiogram, CT chest and 6-minute walk test completed. She reports that those tests are currently scheduled for next week. Past Medical History Past Medical History (Chronic Problems): Chronic Problems Depression (Chronic) Fibromyalgia (Chronic) Insomnia (Chronic) Rheumatoid arthritis (Chronic) Allergies No Known Allergies Allergy (Verified 11/20/18 22:59) Home Medications: Ambulatory Orders Medication Instructions Recorded Bupropion HCl [Wellbutrin Sr] 200 mg PO BID 11/20/18 Cyanocobalamin (Vitamin B-12) 1,000 mcg PO DAILY 11/20/18 [Vitamin B-12] Lamotrigine [Lamictal] 100 mg PO BID 11/20/18 Levothyroxine [Synthroid] 50 mcg PO DAILY 11/20/18 Multivitamin [Once Daily] 1 each PO DAILY 11/20/18 Prednisone 2.5 mg PO DAILY PRN PRN 11/20/18 Temazepam [Restoril] 30 mg PO QHS PRN 11/20/18 traZODone [Desyrel] 100 mg PO QHS 11/20/18 Amlodipine [Norvasc] 10 mg PO DAILY #30 tablet 11/23/18 Losartan Potassium 50 mg PO DAILY #30 tablet 11/23/18 Smoking Status: Never smoker - *Family History Maternal History Items: No pertinent history Review of Systems Constitutional: Reports: Fatigue. Denies: Chills, Fever Eyes: Denies: Blurred vision, Double vision HEENT: Denies: Head Aches, Sinus Congestion, Sinus Drainage Cardiovascular: Denies: Chest Pain, Palpitations Respiratory: Reports: Shortness of breath upon exertion Genitourinary: Denies: Dysuria Musculoskeletal: Reports: Back Pain Skin: Denies: Rash, Wounds Neurological: Reports: Change in Speech, Slurred speech Psychiatric: Denies: Anxiety, Depression, Homicidal Ideations, Suicidal Ideations Hematologic/ Lymphatic: Reports: Anemia Patient Problems: Active and Suspected Problems Hypercalcemia (Acute) Benign hypertension (Acute) Objective: The patient's most recent lab work, culture data and imaging studies have all been personally reviewed. - Physical Exam General: Alert, Oriented x3, Cooperative, No apparent distress, - - Sitting in bedside recliner. HEENT: Atraumatic, PERRLA, Normocephalic Oral: No Gingival or Mucosal Lesions/ Ulcerations Neck: Supple, No Nodes, Trachea Midline Lungs: No rhonchi, No wheeze, No rales, Diminished Cardiovascular: Regular rate, Regular Rhythm, Normal S1, Normal S2 Abdomen: Bowel Sounds Present, Soft, Non Tender Extremities: No clubbing, No cyanosis, No edema Skin: No breakdown Musculoskeletal: - - Stigmata of rheumatoid disease present Lymphatic: No Cervical, Supraclavicular, or Inguinal Adenopathy Neurological: Cranial nerves II-XII grossly intact, Neuro grossly intact Psych/Mental Status: Normal Affect, Appropriate Vital Signs Temp Pulse Resp BP Pulse Ox 98.0 F 79 18 141/69 H 95 11/23/18 09:35 11/23/18 09:35 11/23/18 09:35 11/23/18 09:35 11/23/18 09:35 Oxygen Delivery Method Room Air Weight: 222 lb 3.615 oz Body Mass Index (BMI) 35.9 Intake and Output for Last 24 Hours 11/21/18 11/22/18 11/23/18 23:59 23:59 23:59 Intake Total 4353 / 4353 3873 / 3873 750 / 750 Output Total 2300 / 2300 4450 / 4450 Balance 2053 / 2052 -577 / -577 750 / 750 Laboratory Tests Past 24 Hrs 11/23/18 11/23/18 11/23/18 05:50 05:50 05:50 WBC 4.2 L RBC 3.90 L Hgb 11.6 L Hct 35.7 L MCV 91.5 MCH 29.7 MCHC 32.5 RDW 15.3 H RDW Differential 50.2 H Plt Count 218 MPV 8.4 Immature Gran % (Auto) 0.500 Neut % (Auto) 51.1 Lymph % (Auto) 19.6 [place] % (Auto) 24.5 H Eos % (Auto) 3.1 Baso % (Auto) 1.2 H Absolute Neuts (auto) 2.2 Absolute Lymphs (auto) 0.83 Total Counted Not Reportable Sodium 141 Potassium 3.1 L Chloride 110 H Carbon Dioxide 24.0 Anion Gap 7 BUN 12 Creatinine 1.35 H Estim Creat Clear Calc 41.49 Est GFR (MDRD) Af Amer 51 L Est GFR (MDRD) Non-Af 43 L BUN/Creatinine Ratio 8.9 L Glucose 77 Calcium 10.7 H Total Bilirubin 0.40 AST 34 ALT 30 Alkaline Phosphatase 65 Total Protein 6.5 Albumin 2.7 L Globulin 3.8 Albumin/Globulin Ratio 0.7 L Angiotensin Convert Enz Rheumatoid Factor 24.0 H Cycl Citrul Peptide IgG JOSE Screen LISANDRO-1 Antibody SS-A/Ro IgG Antibody SS-B/La IgG Antibody Sm ([place]) Antibody WARP TIER Antibody Scl-70 Scleroderma Ab Double Strand DNA Ab Centromere B Antibody 11/23/18 11/23/18 09:55 09:55 WBC RBC Hgb Hct MCV MCH MCHC RDW RDW Differential Plt Count MPV Immature Gran % (Auto) Neut % (Auto) Lymph % (Auto) [place] % (Auto) Eos % (Auto) Baso % (Auto) Absolute Neuts (auto) Absolute Lymphs (auto) Total Counted Sodium Potassium Chloride Carbon Dioxide Anion Gap BUN Creatinine Estim Creat Clear Calc Est GFR (MDRD) Af Amer Est GFR (MDRD) Non-Af BUN/Creatinine Ratio Glucose Calcium Total Bilirubin AST ALT Alkaline Phosphatase Total Protein Albumin Globulin Albumin/Globulin Ratio Angiotensin Convert Enz Pending Rheumatoid Factor Cycl Citrul Peptide IgG Pending JOSE Screen Pending LISANDRO-1 Antibody Pending SS-A/Ro IgG Antibody Pending SS-B/La IgG Antibody Pending Sm ([place]) Antibody Pending WARP TIER Antibody Pending Scl-70 Scleroderma Ab Pending Double Strand DNA Ab Pending Centromere B Antibody Pending Clinical Impression(s) from Imaging Studies Chest CT 11/21/18 12:21 IMPRESSION: Findings suggestive of chronic interstitial fibrosis involving both lungs worse in the lower lobes. Electronically Signed: Filiberto Cook, at 13:43 EDT , Service support , Assessment/Plan All Active Problems Hypercalcemia (Acute) Benign hypertension (Acute) RECOMMENDATIONS: 1. Perform walking oximetry study on room air prior to consideration for discharge from the hospital. 2. Defer management of hypercalcemia to hospitalist. 3. Orders for ambulatory pulmonary function testing has been placed. 4. The patient currently has a 6-minute walk test and echocardiogram scheduled for December 01. I would recommend that the patient follow-up in the pulmonary medicine clinic during the first week of December for review of her test results. IMPRESSIONS: 1. Abnormal chest CT The patient's recent noncontrasted chest CT did reveal evidence of interstitial fibrosis, most pronounced in the bases. 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 Despite this, the patient does not currently have a supplemental oxygen requirement at rest. Therefore, prior to her discharge from the hospital, would recommend a walking oximetry study on room air to ensure adequacy of oxygenation with exertion. In addition, the patient's tinsel machine operator recently placed orders for the patient to undergo an echocardiogram and 6-minute walk test next week. There is only be beneficial if we could see the patient in follow-up in the pulmonary medicine clinic during the first week of December, after she has completed her testing. The patient will require pulmonary function testing as well. 2. Personal history of rheumatoid arthritis The patient is currently following with a tinsel machine operator in [facility]. Upon follow-up in the pulmonary medicine clinic, the patient will need to sign a medical release form so that records can be obtained from the rheumatology office. 3. Hypercalcemia [place] to be medication induced. Defer management to hospitalist. This note was generated with [employer] dictation software. It may contain incorrect words, spelling, and punctuation that were not noted in checking the note before signing. Code Visit Inpatient E&M: 65389 Init Hosp L2
--- NOTE | 2018-11-23 11:11 | CON.PCM_ITS ---
Reason for Consult Date of Consultation: 11/23/18 Reason for Consultation: Interstitial lung disease History of Present Illness: The patient is a 58-year-old female, with a history as outlined below, who presented as a direct admission from [facility] due to hypercalcemia. 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 She became concerned over the fact that the patient had developed confusion and slurred speech. She did a preliminary work-up and upon discovery of the patient's hypercalcemia, encouraged the patient to present to the emergency department for evaluation. On presentation here, the patient was noted to be afebrile and hemodynamically stable. She was maintaining appropriate oxygen saturations on room air. Laboratory evaluation revealed no evidence of a leukocytosis. The patient did have normocytic anemia. Chemistry profile was notable for a potassium of 3.2 along with acute kidney injury with a creatinine of 1.70. Calcium was elevated to 11.3, with albumin being low at 2.9. The patient was admitted to the medical surgical floor for ongoing management. Her hospital course has included IV fluid hydration with normal saline. It was strongly suspected that her hypercalcemia was the consequence of hydrochlorothiazide and oral vitamin D intake. A CT chest without contrast was obtained, which revealed diffuse interstitial fibrotic changes, most pronounced the lung bases with a mild degree of subpleural honeycombing. Despite this, the patient has been able to maintain appropriate oxygen saturations on room air throughout her hospital stay. The patient has a long-standing history of rheumatoid arthritis and is currently followed by a clerk typist at the arthritis Center in [facility] (Dr Christiano Mcclellan). She is not currently on any form of treatment, with the exception of as needed prednisone. She was previously treated with Remicade. The patient is a lifelong non-smoker. Her clerk typist recently placed orders for the patient to have an echocardiogram, CT chest and 6-minute walk test completed. She reports that those tests are currently scheduled for next week. Past Medical History Past Medical History (Chronic Problems): Chronic Problems Depression (Chronic) Fibromyalgia (Chronic) Insomnia (Chronic) Rheumatoid arthritis (Chronic) Allergies No Known Allergies Allergy (Verified 11/20/18 22:59) Home Medications: Ambulatory Orders Medication Instructions Recorded Bupropion HCl [Wellbutrin Sr] 200 mg PO BID 11/20/18 Cyanocobalamin (Vitamin B-12) 1,000 mcg PO DAILY 11/20/18 [Vitamin B-12] Lamotrigine [Lamictal] 100 mg PO BID 11/20/18 Levothyroxine [Synthroid] 50 mcg PO DAILY 11/20/18 Multivitamin [Once Daily] 1 each PO DAILY 11/20/18 Prednisone 2.5 mg PO DAILY PRN PRN 11/20/18 Temazepam [Restoril] 30 mg PO QHS PRN 11/20/18 traZODone [Desyrel] 100 mg PO QHS 11/20/18 Amlodipine [Norvasc] 10 mg PO DAILY #30 tablet 11/23/18 Losartan Potassium 50 mg PO DAILY #30 tablet 11/23/18 Smoking Status: Never smoker - *Family History Maternal History Items: No pertinent history Review of Systems Constitutional: Reports: Fatigue. Denies: Chills, Fever Eyes: Denies: Blurred vision, Double vision HEENT: Denies: Head Aches, Sinus Congestion, Sinus Drainage Cardiovascular: Denies: Chest Pain, Palpitations Respiratory: Reports: Shortness of breath upon exertion Genitourinary: Denies: Dysuria Musculoskeletal: Reports: Back Pain Skin: Denies: Rash, Wounds Neurological: Reports: Change in Speech, Slurred speech Psychiatric: Denies: Anxiety, Depression, Homicidal Ideations, Suicidal Ideations Hematologic/ Lymphatic: Reports: Anemia Patient Problems: Active and Suspected Problems Hypercalcemia (Acute) Benign hypertension (Acute) Objective: The patient's most recent lab work, culture data and imaging studies have all been personally reviewed. - Physical Exam General: Alert, Oriented x3, Cooperative, No apparent distress, - - Sitting in bedside recliner. HEENT: Atraumatic, PERRLA, Normocephalic Oral: No Gingival or Mucosal Lesions/ Ulcerations Neck: Supple, No Nodes, Trachea Midline Lungs: No rhonchi, No wheeze, No rales, Diminished Cardiovascular: Regular rate, Regular Rhythm, Normal S1, Normal S2 Abdomen: Bowel Sounds Present, Soft, Non Tender Extremities: No clubbing, No cyanosis, No edema Skin: No breakdown Musculoskeletal: - - Stigmata of rheumatoid disease present Lymphatic: No Cervical, Supraclavicular, or Inguinal Adenopathy Neurological: Cranial nerves II-XII grossly intact, Neuro grossly intact Psych/Mental Status: Normal Affect, Appropriate Vital Signs Temp Pulse Resp BP Pulse Ox 98.0 F 79 18 141/69 H 95 11/23/18 09:35 11/23/18 09:35 11/23/18 09:35 11/23/18 09:35 11/23/18 09:35 Oxygen Delivery Method Room Air Weight: 222 lb 3.615 oz Body Mass Index (BMI) 35.9 Intake and Output for Last 24 Hours 11/21/18 11/22/18 11/23/18 23:59 23:59 23:59 Intake Total 4353 / 4353 3873 / 3873 750 / 750 Output Total 2300 / 2300 4450 / 4450 Balance 2053 / 2052 -577 / -577 750 / 750 Laboratory Tests Past 24 Hrs 11/23/18 11/23/18 11/23/18 05:50 05:50 05:50 WBC 4.2 L RBC 3.90 L Hgb 11.6 L Hct 35.7 L MCV 91.5 MCH 29.7 MCHC 32.5 RDW 15.3 H RDW Differential 50.2 H Plt Count 218 MPV 8.4 Immature Gran % (Auto) 0.500 Neut % (Auto) 51.1 Lymph % (Auto) 19.6 [place] % (Auto) 24.5 H Eos % (Auto) 3.1 Baso % (Auto) 1.2 H Absolute Neuts (auto) 2.2 Absolute Lymphs (auto) 0.83 Total Counted Not Reportable Sodium 141 Potassium 3.1 L Chloride 110 H Carbon Dioxide 24.0 Anion Gap 7 BUN 12 Creatinine 1.35 H Estim Creat Clear Calc 41.49 Est GFR (MDRD) Af Amer 51 L Est GFR (MDRD) Non-Af 43 L BUN/Creatinine Ratio 8.9 L Glucose 77 Calcium 10.7 H Total Bilirubin 0.40 AST 34 ALT 30 Alkaline Phosphatase 65 Total Protein 6.5 Albumin 2.7 L Globulin 3.8 Albumin/Globulin Ratio 0.7 L Angiotensin Convert Enz Rheumatoid Factor 24.0 H Cycl Citrul Peptide IgG JOSE Screen LISANDRO-1 Antibody SS-A/Ro IgG Antibody SS-B/La IgG Antibody Sm (Saab) Antibody BODY ROLLING MACHINE TENDER Antibody Scl-70 Scleroderma Ab Double Strand DNA Ab Centromere B Antibody 11/23/18 11/23/18 09:55 09:55 WBC RBC Hgb Hct MCV MCH MCHC RDW RDW Differential Plt Count MPV Immature Gran % (Auto) Neut % (Auto) Lymph % (Auto) [place] % (Auto) Eos % (Auto) Baso % (Auto) Absolute Neuts (auto) Absolute Lymphs (auto) Total Counted Sodium Potassium Chloride Carbon Dioxide Anion Gap BUN Creatinine Estim Creat Clear Calc Est GFR (MDRD) Af Amer Est GFR (MDRD) Non-Af BUN/Creatinine Ratio Glucose Calcium Total Bilirubin AST ALT Alkaline Phosphatase Total Protein Albumin Globulin Albumin/Globulin Ratio Angiotensin Convert Enz Pending Rheumatoid Factor Cycl Citrul Peptide IgG Pending JOSE Screen Pending LISANDRO-1 Antibody Pending SS-A/Ro IgG Antibody Pending SS-B/La IgG Antibody Pending Sm (Saab) Antibody Pending BODY ROLLING MACHINE TENDER Antibody Pending Scl-70 Scleroderma Ab Pending Double Strand DNA Ab Pending Centromere B Antibody Pending Clinical Impression(s) from Imaging Studies Chest CT 11/21/18 12:21 IMPRESSION: Findings suggestive of chronic interstitial fibrosis involving both lungs worse in the lower lobes. Electronically Signed: Filiberto Cook, at 13:43 EDT , Service support , Assessment/Plan All Active Problems Hypercalcemia (Acute) Benign hypertension (Acute) RECOMMENDATIONS: 1. Perform walking oximetry study on room air prior to consideration for discharge from the hospital. 2. Defer management of hypercalcemia to hospitalist. 3. Orders for ambulatory pulmonary function testing has been placed. 4. The patient currently has a 6-minute walk test and echocardiogram scheduled for December 01. I would recommend that the patient follow-up in the pulmonary medicine clinic during the first week of December for review of her test results. IMPRESSIONS: 1. Abnormal chest CT The patient's recent noncontrasted chest CT did reveal evidence of interstitial fibrosis, most pronounced in the bases. 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 Despite this, t he patient does not currently have a supplemental oxygen requirement at rest. Therefore, prior to her discharge from the hospital, would recommend a walking oximetry study on room air to ensure adequacy of oxygenation with exertion. In addition, the patient's clerk typist recently placed orders for the patient to undergo an echocardiogram and 6-minute walk test next week. There is only be beneficial if we could see the patient in follow-up in the pulmonary medicine clinic during the first week of December, after she has completed her testing. The patient will require pulmonary function testing as well. 2. Personal history of rheumatoid arthritis The patient is currently following with a clerk typist in [facility]. Upon follow-up in the pulmonary medicine clinic, the patient will need to sign a medical release form so that records can be obtained from the rheumatology office. 3. Hypercalcemia [place] to be medication induced. Defer management to hospitalist. This note was generated with [employer] dictation software. It may contain incorrect words, spelling, and punctuation that were not noted in checking the note before signing. Code Visit Inpatient E&M: 86947 Init Hosp L2
--- NOTE | 2018-11-23 11:56 | DCINST_ITS ---
- Discharge Diagnoses Current Active Problems: Current Active and Chronic Problems Hypercalcemia (Acute) Benign hypertension (Acute) Depression (Chronic) Fibromyalgia (Chronic) Insomnia (Chronic) Rheumatoid arthritis (Chronic) You will use the following diet at home:: Cardiac Your food should be the consistency of: Regular Your liquids should be the consistency of: Regular/Thin Discharge Activity: Return to Normal Activity Weight Bearing Status: Weight bearing as tolerated Call your doctor if you observe: Numbness or Tingling, Shortness of breath, Swelling in the ankles, Chest pain Instructions: Discharge Instructions for Hypercalcemia Additional Instructions: see PCP for repeat CMP to check calcium level in 2 days Allergies/Adverse Reactions: Allergies No Known Allergies Allergy (Verified 11/20/18 22:59) Medications to take at Discharge Bupropion HCl [Wellbutrin Sr] 200 mg PO BID 11/20/18 Cyanocobalamin (Vitamin B-12) [Vitamin B-12] 1,000 mcg PO DAILY 11/20/18 Lamotrigine [Lamictal] 100 mg PO BID 11/20/18 Levothyroxine [Synthroid] 50 mcg PO DAILY 11/20/18 Multivitamin [Once Daily] 1 each PO DAILY 11/20/18 Prednisone 2.5 mg PO DAILY PRN PRN 11/20/18 Temazepam [Restoril] 30 mg PO QHS PRN 11/20/18 traZODone [Desyrel] 100 mg PO QHS 11/20/18 Amlodipine [Norvasc] 10 mg PO DAILY #30 tablet 11/23/18 Losartan Potassium 50 mg PO DAILY #30 tablet 11/23/18 The following prescriptions were given: Amlodipine [Norvasc] 10 mg PO DAILY #30 tablet Losartan Potassium 50 mg PO DAILY #30 tablet Orders to be completed after discharge: Pulmonary Function Test (Comp) Location: None Selected Primary Care Physician: Jany Morales MD [Primary Care Provider] - Please follow up with your Primary Care Physician in: 2-3 days Test Results: Test results from this visit will be discussed in further detail at your follow- up appointment, if applicable. Proposed Discharge Date: 11/23/18
[2018-11-23] MEDS: Nystatin Powder 15gm Bottle 1 APPLIC TOPICAL (13:29)
[2018-11-23 13:38] VITALS: BP 144/79; PULSE 82; RESP 18; TEMP 36.8; O2SAT 100
[2018-11-23 16:16] LABS: ALB/GLOB Ratio 0.7 RATIO (0.9-2.4); AST(SGOT) 56 U/L (15-37); Alanine Aminotransfer ALT/SGPT 42 U/L (13-56); Albumin, Serum 3.1 g/dL (3.2-5.0); Alkaline Phosphatase 77 U/L (45-117); Anion Gap 5 (5-15); BUN 13 mg/dL (7-18); BUN/Creat Ratio 8.8 RATIO (10-20); Calcium,Total 10.6 mg/dL (8.5-10.1); Chloride 107 mmol/L (98-107); Creatinine, Serum 1.48 mg/dL (0.55-1.02); EST Glomerular Filtration Rate 38 mL/min (>60); Est Glom Filt Rate - Afr Amer 46 mL/min (>60); Estimated Creatinine Clearance 37.84 ml/min; Globulin 4.4 g/dL (2.2-4.2); Glucose 69 mg/dL (74-106); Potassium 3.7 mmol/L (3.5-5.1); Protein, Total 7.5 g/dL (6.4-8.2); Sodium Level 137 mmol/L (136-145)
--- NOTE | 2018-11-23 17:07 | PCM.DC.SUM ---
Discharge Date and Diagnosis Date of Admission: 11/21/18 Date of Discharge: 11/23/18 - Primary Discharge Diagnosis acute hypercalcemia - Secondary Discharge Diagnosis Chronic Problems Depression (Chronic) Fibromyalgia (Chronic) Insomnia (Chronic) Rheumatoid arthritis (Chronic) Hospital Course and Treatment Imaging Results: Diagnostic Data Chest CT 11/21/18 12:21 IMPRESSION: Findings suggestive of chronic interstitial fibrosis involving both lungs worse in the lower lobes. Electronically Signed: Filiberto Cook, at 13:43 EDT , Service support , pulmonology- Dr Gómez Operations: None Procedures: None Summary of Care Provided: The patient is a 58 year old F with a past medical history of rheumatoid arthritis, depression, hypertension and fibromyalgia. She was admitted through the ED on 11/21/2018 on account of elevated calcium. Patient said her physician was a member of a complication had noted that his speech had changed recently and she was cleaning her herself so she was boarding for laboratory studies. She went to the [facility] ED and was found to have elevated calcium level of 13.9. She was started on IV fluids but they could not admit her there on account of no beds. She was started on IV fluids and admitted to manage for acute hypercalcemia. Parathyroid hormone was low at 6.8. Calcium level trended down gradually to around 11. Of note, patient was noted to be on vitamin D supplementation 50,000 weekly as well as hydrochlorothiazide. Chest CT done was negative for any lung masses but did show chronic interstitial fibrosis prominence in the lower lung bases. 25 hydroxy vitamin D level was normal at 72 and 125 vitamin D level was also ordered but was pending at time of discharge. Patient also had AK I with creatinine being 1.7 on admission. Baseline is however not known. Creatinine trended down to 1.3. Vitamin D supplementation and hydrochlorothiazide were held. Patient also received 2 doses of IV Lasix to help with hypercalcemia. Patient remained stable and calcium of day of discharge was 10.6. Patient was discharged home on 11/23/18. Vitamin D supplementation and hydrochlorothiazide were discontinued. Patient was counseled strongly that she would need to follow-up with her primary care doctor in 2 days for repeat BMP to assess her calcium level. She was counseled that in light of the high doses of vitamin D that she was taking, it would take some time for her calcium levels to come down to normal. Patient was also counseled that she would need to follow-up with her primary care doctor to be referred for a mammogram as she is never had a mammogram even though she is 58 years. If calcium does not come down once hydrochlorothiazide has been discontinued for some time, patient will need to be worked up further for other causes of hypercalcemia such as any bone disorders and multiple myeloma. Must be noted that her total protein was not elevated during this admission and albumin was just around 3, reducing the suspicion for paraproteinemia. She is to follow-up with her primary care doctor in 2 days and was also counseled to keep well-hydrated orally. Of note, patient was also seen by pulmonology during this admission on account of chronic interstitial fibrosis. This was thought to be due to a combination of her rheumatoid arthritis. Patient had not been taking her rheumatoid arthritis medication recently as she said her PCP had put her on a drug holiday. She is also to see her PCP for resumption of her rheumatoid arthritis medications and she is also to follow-up with pulmonology for chronic interstitial fibrosis. Since hydrochlorothiazide was discontinued, patient was given a prescription for PO amlodipine in addition to her losartan. Patient seen and examined prior to discharge. She had no complaints and felt well. Review of systems otherwise negative. Labs and vitals reviewed. Home medication reviewed and reconciled. o/e: Vital Signs Height 5 ft 6 in Weight: 222 lb 3.615 oz Weight in Pounds 222.2 lbs Pulse Ox 100 Temperature 98.3 F Pulse Rate [Standing] 83 Pulse Rate [Sitting] 81 Pulse Rate [Lying] 81 Pulse Rate 82 Respiratory Rate 18 Blood Pressure [Standing] 157/88 Blood Pressure [Sitting] 156/90 Blood Pressure [Lying] 158/91 Blood Pressure 144/79 Blood Pressure Position Sitting [] General: Alert, Oriented x3, Cooperative, No apparent distress HEENT: Atraumatic, PERRLA, EOMI, Normocephalic Oral: Moist Mucosa Neck: Supple, No JVD, Negative Carotid Bruits Lungs: Clear to auscultation, Normal air movement, No rhonchi, No wheeze, No rales Cardiovascular: Regular rate, Regular Rhythm, Normal S1, Normal S2, No murmurs Abdomen: Bowel Sounds Present, Soft, Non Tender, Non-Distended, No Hepato-splenomegaly Extremities: No clubbing, No cyanosis, No edema, Capillary Refill Less than 3 Seconds Skin: - - Scattered ecchymotic patches over her upper extremities-resolving Musculoskeletal: No Tenderness to Palpation of Joints or Extremities Lymphatic: No Cervical, Supraclavicular, or Inguinal Adenopathy Neurological: Cranial nerves II-XII grossly intact, Neuro grossly intact, Motor Exam 5/5 strength throughout Psych/Mental Status: Normal Affect, Appropriate, Alert and oriented to time, place, person, mood and affect Plan as above. - Physical Exam Vital Signs Temp Pulse Resp BP Pulse Ox 98.3 F 82 18 144/79 H 100 11/23/18 13:38 11/23/18 13:38 11/23/18 13:38 11/23/18 13:38 11/23/18 13:38 Oxygen Delivery Method Room Air Weight: 222 lb 3.615 oz Body Mass Index (BMI) 35.9 Intake and Output for Last 24 Hours 11/21/18 11/22/18 11/23/18 23:59 23:59 23:59 Intake Total 4353 / 4353 3873 / 3873 1908 / 1908 Output Total 2300 / 2300 4450 / 4450 1900 / 1900 Balance 2052 -577 / -577 Laboratory Tests Past 24 Hrs 11/21/18 11/23/18 11/23/18 03:10 05:50 05:50 WBC 4.2 L RBC 3.90 L Hgb 11.6 L Hct 35.7 L MCV 91.5 MCH 29.7 MCHC 32.5 RDW 15.3 H RDW Differential 50.2 H Plt Count 218 MPV 8.4 Immature Gran % (Auto) 0.500 Neut % (Auto) 51.1 Lymph % (Auto) 19.6 [place] % (Auto) 24.5 H Eos % (Auto) 3.1 Baso % (Auto) 1.2 H Absolute Neuts (auto) 2.2 Absolute Lymphs (auto) 0.83 Total Counted Not Reportable Sodium 141 Potassium 3.1 L Chloride 110 H Carbon Dioxide 24.0 Anion Gap 7 BUN 12 Creatinine 1.35 H Estim Creat Clear Calc 41.49 Est GFR (MDRD) Af Amer 51 L Est GFR (MDRD) Non-Af 43 L BUN/Creatinine Ratio 8.9 L Glucose 77 Calcium 10.7 H Ionized Calcium 7.4 H Total Bilirubin 0.40 AST 34 ALT 30 Alkaline Phosphatase 65 Total Protein 6.5 Albumin 2.7 L Globulin 3.8 Albumin/Globulin Ratio 0.7 L Angiotensin Convert Enz Rheumatoid Factor Cycl Citrul Peptide IgG JOSE Screen LISANDRO-1 Antibody SS-A/Ro IgG Antibody SS-B/La IgG Antibody Sm (Saab) Antibody PSYCHOLOGICAL OPERATIONS Antibody Scl-70 Scleroderma Ab Double Strand DNA Ab Centromere B Antibody 11/23/18 11/23/18 11/23/18 05:50 09:55 09:55 WBC RBC Hgb Hct MCV MCH MCHC RDW RDW Differential Plt Count MPV Immature Gran % (Auto) Neut % (Auto) Lymph % (Auto) [place] % (Auto) Eos % (Auto) Baso % (Auto) Absolute Neuts (auto) Absolute Lymphs (auto) Total Counted Sodium Potassium Chloride Carbon Dioxide Anion Gap BUN Creatinine Estim Creat Clear Calc Est GFR (MDRD) Af Amer Est GFR (MDRD) Non-Af BUN/Creatinine Ratio Glucose Calcium Ionized Calcium Total Bilirubin AST ALT Alkaline Phosphatase Total Protein Albumin Globulin Albumin/Globulin Ratio Angiotensin Convert Enz Pending Rheumatoid Factor 24.0 H Cycl Citrul Peptide IgG Pending JOSE Screen Pending LISANDRO-1 Antibody Pending SS-A/Ro IgG Antibody Pending SS-B/La IgG Antibody Pending Sm (Saab) Antibody Pending PSYCHOLOGICAL OPERATIONS Antibody Pending Scl-70 Scleroderma Ab Pending Double Strand DNA Ab Pending Centromere B Antibody Pending 11/23/18 15:40 WBC RBC Hgb Hct MCV MCH MCHC RDW RDW Differential Plt Count MPV Immature Gran % (Auto) Neut % (Auto) Lymph % (Auto) [place] % (Auto) Eos % (Auto) Baso % (Auto) Absolute Neuts (auto) Absolute Lymphs (auto) Total Counted Sodium 137 Potassium 3.7 Chloride 107 Carbon Dioxide 25.0 Anion Gap 5 BUN 13 Creatinine 1.48 H Estim Creat Clear Calc 37.84 Est GFR (MDRD) Af Amer 46 L Est GFR (MDRD) Non-Af 38 L BUN/Creatinine Ratio 8.8 L Glucose 69 L Calcium 10.6 H Ionized Calcium Total Bilirubin 0.40 AST 56 H ALT 42 Alkaline Phosphatase 77 Total Protein 7.5 Albumin 3.1 L Globulin 4.4 H Albumin/Globulin Ratio 0.7 L Angiotensin Convert Enz Rheumatoid Factor Cycl Citrul Peptide IgG JOSE Screen LISANDRO-1 Antibody SS-A/Ro IgG Antibody SS-B/La IgG Antibody Sm (Sa[place]) Antibody PSYCHOLOGICAL OPERATIONS Antibody Scl-70 Scleroderma Ab Double Strand DNA Ab Centromere B Antibody Discharge Diet: Low fat/ Low Cholesterol Discharge Activity: Return to Normal Activity Weight Bearing Status: Weight bearing as tolerated Call your doctor if you observe: Numbness or Tingling, Shortness of breath, Swelling in the ankles, Chest pain Home Medications: Medications to take at Discharge Bupropion HCl [Wellbutrin Sr] 200 mg PO BID 11/20/18 Cyanocobalamin (Vitamin B-12) [Vitamin B-12] 1,000 mcg PO DAILY 11/20/18 Lamotrigine [Lamictal] 100 mg PO BID 11/20/18 Levothyroxine [Synthroid] 50 mcg PO DAILY 11/20/18 Multivitamin [Once Daily] 1 each PO DAILY 11/20/18 Prednisone 2.5 mg PO DAILY PRN PRN 11/20/18 Temazepam [Restoril] 30 mg PO QHS PRN 11/20/18 traZODone [Desyrel] 100 mg PO QHS 11/20/18 Amlodipine [Norvasc] 10 mg PO DAILY #30 tablet 11/23/18 Losartan Potassium 50 mg PO DAILY #30 tablet 11/23/18 Following Prescrptions Were Given to Patient: Amlodipine [Norvasc] 10 mg PO DAILY #30 tablet Losartan Potassium 50 mg PO DAILY #30 tablet Other Amb Orders: Pulmonary Function Test (Comp) Location: None Selected Primary Care Physician: Jany Morales MD [Primary Care Provider] - Please follow up with your Primary Care Physician in: 2-3 days Patient Instructions: Discharge Instructions for Hypercalcemia Disposition: Home Minutes spent on discharge:: 45 Patient Condition:: Stable Medical Necessity - Tobacco Use Smoking Status: Never smoker Meaningful Use Info Meaningful Use Diagnoses (Choose all that apply): None applicable Code Visit Inpatient E&M: 58166 Disch Hosp
[2018-11-24 14:06] LABS: ANTINUCLEAR ANTIBODIES DIRECT Positive (Negative); Anti-Centromere B Ab 5.1 AI (0.0-0.9); Anti-Chromatin <0.2 AI (0.0-0.9); Anti-Jo <0.2 AI (0.0-0.9); Anti-Scleroderma-70 AB <0.2 AI (0.0-0.9); RNP Ab <0.2 AI (0.0-0.9); SJOGREN'S Anti-SS-A test < 0.2 AI (0.0-0.9); SJOGREN'S Anti-SS-B test < 0.2 AI (0.0-0.9); Smith Ab <0.2 AI (0.0-0.9)
[2018-11-24 15:37] LABS: Anti-dsDNA Ab <1 IU/mL (0-9)
[2018-11-25 03:06] LABS: Angiotensin Convert Enzyme 77 U/L (14-82)
[2018-11-25 12:44] LABS: CCP IgG Antibodies 5 units (0-19)
== END 2018-11-23 16:55 | disposition home or self-care (01) | DRG 641 ==
PROVIDERS: Internal Medicine Critical Care Medicine; Admitting Provider Family Medicine; Family Provider Family Medicine; PCP Family Medicine; Visit Provider Student in an Organized Health Care Education/Training Program
DX: E83.52 Hypercalcemia (principal); N17.9 Acute kidney failure, unspecified; J84.9 Interstitial pulmonary disease, unspecified; M79.7 Fibromyalgia; I10 Essential (primary) hypertension; M06.9 Rheumatoid arthritis, unspecified; E87.6 Hypokalemia; F51.04 Psychophysiologic insomnia; F32.9 Major depressive disorder, single episode, unspecified
CPT/HCPCS: 36415; 71250; 80048; 80053; 80076; 81001; 82040; 82164; 82306; 82330; 82652; 83735; 83970; 84100; 84156; 84443; 85025; 85027; 86038; 86200; 86225; 86235; 86431; 97116; 97163; 97166; 97530; 97535; J7030; A4216; J1940

== ENCOUNTER 2018-11-25 14:44 | Emergency (ER) | payer BC, SELFPAY ==
[2018-11-25 14:44] VITALS: BP 121/93; PULSE 95; RESP 16; TEMP 36.6; O2SAT 98; BMI 35.9
--- NOTE | 2018-11-25 16:32 | ED.VIS.GEN ---
History of Present Illness Chief Complaint: Abn Labs Detail of Chief Complaint: Elevated calcium Informant: Patient, Family Onset: Days Context: Gradual Onset Timing: Continuous Quality: Elevated calcium recent admission Location: Hospital Current Severity: Mild Maximum Severity: Mild Worsened by: Presumption vitamin D supplements Relieved by: Improved with treatment Associated Symptoms: No increased thirst, urination or muscle symptoms. Narrative: Patient is a 58-year-old woman. She is a poor informant. Patient reported triage she is here for low calcium. She told me she was here for low calcium. Review of records indicates she was admitted for high calcium. It was believed that her high calcium was secondary to vitamin D supplements. She was instructed to have repeat blood work in 2 days. Her primary care physician instructed her to come to the emergency room to have that blood work drawn. Presently patient is asymptomatic. Prior similar symptoms: Yes Recent Illness/Hospitalization: Yes - Past Medical History (1) Benign hypertension Status: Acute (2) Hypercalcemia Status: Acute (3) Depression Status: Chronic (4) Fibromyalgia Status: Chronic (5) Insomnia Status: Chronic (6) Rheumatoid arthritis Status: Chronic Past Medical History - Allergies and Home Meds Allergies/Adverse Reactions: Allergies No Known Allergies Allergy (Verified 11/25/18 14:46) Primary Care Physician: Jany Morales MD [Primary Care Provider] - Prior records reviewed: Yes Lives: With Family Smoking Status: Never smoker Alcohol: None - Family History Maternal Family History: Reports: No pertinent history Review of Systems General: Denies: Chills, Fever, Sweats Eyes: Denies: Visual changes - bilaterally, Blurred Vision - bilaterally, Diplopia ENT: Denies: Bilateral ear pain, Rhinorrhea, Sore throat Cardiovascular: Denies: Chest pain, Palpitations Respiratory: Denies: Dyspnea, Cough, Dyspnea on exertion Gastrointestinal: Denies: Abdominal pain, Nausea, Vomiting, Diarrhea, Melena, Hematochezia Genitourinary: Denies: Dysuria, Hematuria, Frequency Musculoskeletal: Denies: Myalgias, Arthralgias, Back pain, Extremity Pain Skin: Denies: Rash, Wounds Neurological: Denies: Headache, Weakness, Parasthesia, Numbness Hematologic: Denies: Easy bruising, Easy bleeding Allergy: Denies: Uticaria Physical Exam Vital Signs/Narrative: Vital Signs Temp Pulse Resp BP Pulse Ox 11/25/18 14:44 98 F 95 16 121/93 H 98 Inital Vital Signs reviewed: Yes General: Well nourished, Well developed, No Acute Distress Head: Normocephalic, Atraumatic Eyes: Perrl, EOMI ENT: Moist mucous membranes, No rhinorrhea Neck: Supple, Nontender Cardiovascular: Regular rate, Regular rhythm, No murmurs, Normal S1, Normal S2 Respiratory: No distress, CTA bilaterally, Chest nontender Abdomen: Soft, Nontender, Nondistended, Normal bowel sounds, No masses Back: Nontender, Normal Inspection Extremities: Nontender, No edema Skin: Normal color, No rash Neurological: Alert, Oriented x3, Cranial nerves II-XII grossly intact, Normal Strength, Normal Sensation, Normal DTR - DTR 1+ upper and lower extremity and symmetric Psychological: Normal affect, Normal Mood Diagnostic/Tx/Re-eval Laboratory Results 11/25/18 16:45 Sodium 137 Potassium 3.9 Chloride 106 Carbon Dioxide 25.0 Anion Gap 6 BUN 16 Creatinine 1.37 H Estim Creat Clear Calc 40.88 Est GFR (MDRD) Af Amer 51 L Est GFR (MDRD) Non-Af 42 L BUN/Creatinine Ratio 11.7 Glucose 92 Calcium 10.3 H Total Bilirubin 0.70 AST 84 H ALT 55 Alkaline Phosphatase 64 Total Protein 6.7 Albumin 2.9 L Globulin 3.8 Albumin/Globulin Ratio 0.8 L - Medical Decision Making Electric panel was ordered to assess calcium as well as albumin. Will reassess once lab tests are available for review. Patient's calcium is 10.3. Creatinine has improved. We will have her follow-up with her primary care physician next week as scheduled by hospitalist when she was discharged. ED Disposition - Plan for ED Patient: Disposition: Home or Assisted Living Diagnosis: Hypercalcemia, Chronic renal insufficiency Instructions: ED Insufficiency Renal, Discharge Instructions for Hypercalcemia Referrals: Jany Morales MD [Primary Care Provider] - 5-7 Days Additional Instructions: Discontinue taking vitamin D.
[2018-11-25 17:27] LABS: ALB/GLOB Ratio 0.8 RATIO (0.9-2.4); AST(SGOT) 84 U/L (15-37); Alanine Aminotransfer ALT/SGPT 55 U/L (13-56); Albumin, Serum 2.9 g/dL (3.2-5.0); Alkaline Phosphatase 64 U/L (45-117); Anion Gap 6 (5-15); BUN 16 mg/dL (7-18); BUN/Creat Ratio 11.7 RATIO (10-20); Calcium,Total 10.3 mg/dL (8.5-10.1); Chloride 106 mmol/L (98-107); Creatinine, Serum 1.37 mg/dL (0.55-1.02); EST Glomerular Filtration Rate 42 mL/min (>60); Est Glom Filt Rate - Afr Amer 51 mL/min (>60); Estimated Creatinine Clearance 40.88 ml/min; Globulin 3.8 g/dL (2.2-4.2); Glucose 92 mg/dL (74-106); Potassium 3.9 mmol/L (3.5-5.1); Protein, Total 6.7 g/dL (6.4-8.2); Sodium Level 137 mmol/L (136-145)
[2018-11-25 18:16] VITALS: BP 116/78; PULSE 83; RESP 16; TEMP 36.7; O2SAT 98
--- NOTE | 2018-11-25 18:17 | ED.RN ---
IV DC'ED, CATHETER INTACT, SMALL GAUZE DRESSING PLACED. DISCHARGE INSTRUCTIONS GIVEN TO AND REVIEWED WITH PATIENT, PATIENT DENIES QUESTIONS OR CONCERNS AND VOICES UNDERSTANDING OF DISCHARGE INSTRUCTIONS. PT AMBULATES OUT OF ROOM WITHOUT DIFFICULTY.
== END 2018-11-25 18:22 | disposition home or self-care (01) ==
PROVIDERS: Emergency Provider Emergency Medicine; Family Provider Family Medicine; PCP Family Medicine
DX: E83.52 Hypercalcemia (principal); I12.9 Hypertensive chronic kidney disease with stage 1 through stage 4 chronic kidney disease, or unspecified chronic kidney disease; N18.9 Chronic kidney disease, unspecified; F32.9 Major depressive disorder, single episode, unspecified; M79.7 Fibromyalgia; G47.00 Insomnia, unspecified; M06.9 Rheumatoid arthritis, unspecified
CPT/HCPCS: 80053; 99284; A4216

== ENCOUNTER → 2018-12-01 10:53 | Outpatient (CLI) | payer BC, SELFPAY ==
[2018-11-25 14:44] VITALS: BMI 35.9
[2018-12-01 11:00] VITALS: PULSE 103; PULSE 108; PULSE 110; PULSE 113; PULSE 115; PULSE 89; PULSE 96; O2SAT 94; O2SAT 95; O2SAT 97; O2SAT 98; O2SAT 99
--- NOTE | 2018-12-01 11:32 | CPS ---
pt's medical physics teacher is Dr. Gómez, pt was not short of breath or dizzy during 6 min walk. Pt was very unbalanced & unstable while walking.
--- NOTE | 2018-12-01 12:33 | ECHOD_ITS ---
Reason For Study: SOB Procedure This was a 2D Doppler, Color Flow transthoracic echocardiogram. The study was technically difficult. Exam performed in department. Left Ventricle Normal LV size. Left ventricular systolic function is normal. The estimated ejection fraction is 70 %. No evidence for diastolic dysfunction. No regional wall motion abnormalities noted. Right Ventricle Normal RV size. Normal systolic function. Atria Normal left atrium. Normal right atrium. No doppler evidence for ASD. Mitral Valve There is no mitral annular calcification. Normal mitral valve. Mild (1+) mitral valve insufficiency. Tricuspid Valve Normal tricuspid valve. Mild tricuspid valve insufficiency. Right ventricular systolic pressure estimated to be 30 mmHg. Aortic Valve Trisinus/trileaflet aortic valve. Mild focal aortic valve calcification. Pulmonic Valve The pulmonic valve is not well visualized. Great Vessels The aortic root is not well visualized. Pericardium/Pleural No pericardial effusion. MMode/2D Measurements & Calculations LVIDd: 4.9 cm IVSd: 1.2 cm LA dimension: 3.7 cm LVIDs: 3.1 cm LVPWd: 1.1 cm RVDd: 3.3 cm FS: 36.0 % LAV(MOD-bp): 52.8 ml LA A4 area: 18.7 cm2 RA A4 area: 12.5 cm2 LAV(MOD-bp) Indexed: 24.9 ml/m2 LAV(MOD-sp2): 46.7 ml LAV(MOD-sp4): 53.8 ml Time Measurements MV dec time: 0.18 sec Doppler Measurements & Calculations MV E max yoel: 72.8 cm/sec Lat Peak E' Yoel: 8.8 cm/sec Med Peak E' Yoel: 10.6 cm/sec MV A max yoel: 84.4 cm/sec E/E' lat: 8.3 E/E' med: 6.9 MV E/A: 0.86 MV V2 max: 101.6 cm/sec MV P1/2t max yoel: 90.6 cm/sec Ao V2 max: 163.7 cm/sec MV max P.1 mmHg MV P1/2t: 56.7 msec Ao max P.7 mmHg MV V2 mean: 63.3 cm/sec MV dec slope: 467.6 cm/sec2 MV mean P.8 mmHg MVA(P1/2t): 3.9 cm2 MV V2 VTI: 22.2 cm LV V1 max: 138.5 cm/sec PA V2 max: 108.8 cm/sec TR max yoel: 257.6 cm/sec LV V1 max P.7 mmHg TR max P.5 mmHg Interpretation Summary The study was technically difficult. Left ventricular systolic function is normal. The estimated ejection fraction is 70 %. Mild (1+) mitral valve insufficiency. Mild tricuspid valve insufficiency. Mild focal aortic valve calcification. Right ventricular systolic pressure estimated to be 30 mmHg. No evidence for diastolic dysfunction. Ordering Physician: Christiano Mcclellan Referring Physician: Christiano Mcclellan Performed By: Jovanny Mccain RCS
--- NOTE | 2018-12-01 14:50 | PCM.PSN.6M ---
PSN 6 Minute Walk Test - 6 Minute Walk Test 6 Minute Walk Test: 6 Minute Walk Test PSN:6-Minute Walk Test Start: 12/01/18 11:30 Freq: Status: Active Protocol: [id number].[id number] Document 12/01/18 11:00 HG (Rec: 12/01/18 11:37 HG [id number]) 6 Minute Walk Test Date Performed 12/01/18 Time Performed 11:00 Height 5 ft 6 in Weight: 104.326 kg Weight in Pounds 230.[address]: Christiano Mcclellan Assistive device used: None Pre-test Oxygen Delivery Method Room Air Pulse Ox (%) 98 Pulse Rate (60-100 beats/min) 89 Dyspnea Antonia Scale (0-10) 0 Exertion Antonia Scale (6-20) 6 1st minute Oxygen Delivery Method Room Air Pulse Ox (%) 95 Pulse Rate (60-100 beats/min) 103 H 2nd minute Oxygen Delivery Method Room Air Pulse Ox (%) 94 Pulse Rate (60-100 beats/min) 110 H 3rd minute Oxygen Delivery Method Room Air Pulse Ox (%) 97 Pulse Rate (60-100 beats/min) 113 H 4th minute Oxygen Delivery Method Room Air Pulse Ox (%) 98 Pulse Rate (60-100 beats/min) 115 H Number of Rests Taken 1 5th minute Oxygen Delivery Method Room Air Pulse Ox (%) 95 Pulse Rate (60-100 beats/min) 108 H 6th minute Oxygen Delivery Method Room Air Pulse Ox (%) 99 Pulse Rate (60-100 beats/min) 110 H Post-test Oxygen Delivery Method Room Air Pulse Ox (%) 98 Pulse Rate (60-100 beats/min) 96 Dyspnea Antonia Scale (0-10) 0 Exertion Antonia Scale (6-20) 6 Full Laps Walked 10 Partial Lap, Number of Tiles Walked 0 Total Distance Walked (ft) 590 12/01/18 11:32 Cardiopulmonary Services by Danita Patel pt's dessert cup machine feeder is Dr. Gómez, pt was not short of breath or dizzy during 6 min walk. Pt was very unbalanced & unstable while walking. Initialized on 12/01/18 11:32 - END OF NOTE - Interpretation Interpretation: The patient was able to ambulate 590 feet over the course of 6 minutes on room air with no assistive devices, but did require 2 breaks secondary to balance issues and on stability with walking. The patient did have desaturations as low as 94% with reflexive tachycardia. These findings are consistent with a musculoskeletal/deconditioning limitation exercise tolerance. - Recommendations Recommendations: No supplemental oxygen is indicated at this time.
== END ==
PROVIDERS: Family Provider Family Medicine; PCP Family Medicine; Referring Provider Internal Medicine Rheumatology; Visit Provider Internal Medicine Rheumatology
DX: R06.02 Shortness of breath (principal)
CPT/HCPCS: 93306; 94618

== ENCOUNTER → 2018-12-06 | Outpatient (CLI) | payer BC, SELFPAY ==
[2018-11-25 14:44] VITALS: BMI 35.9
--- NOTE | 2018-12-06 13:00 | PFT ---
INTRODUCTION: The patient is a 58-year-old female that presents for pulmonary function studies secondary to a diagnosis of shortness of breath. Respiratory therapy reports good patient effort. Bronchodilators were used during testing. INTERPRETATION: Forced expiration spirometry demonstrates no evidence of a large airways obstructive ventilatory defect. There was no significant response to aerosolized bronchodilators. Spirograms are good quality and plateau normally. Body plethysmography was performed and reveals a decreased TLC to 3.01 L, 57% of predicted, indicative of a severe restrictive ventilatory defect. The remainder of the lung volumes are symmetrically reduced. Diffusing capacity by single breath CO is moderately reduced at 58% of predicted. IMPRESSION: Severe restrictive ventilatory defect with moderate reduction in diffusing capacity.
== END | disposition home or self-care (01) ==
LOC: PSN 10:34
PROVIDERS: Family Provider Family Medicine; PCP Family Medicine; Referring Provider Internal Medicine Critical Care Medicine; Visit Provider Internal Medicine Critical Care Medicine
DX: J98.4 Other disorders of lung (principal)
CPT/HCPCS: 94060; 94726; 94729